=== PATIENT | female | born 1990 | race Caucasian/White ===

== ENCOUNTER 2017-09-18 14:50 | Emergency (ER) | payer OTHER ==
[~2017-09-18] VITALS: Ht 152.4 cm; Wt 76.0 kg
[~2017-09-18 14:50] MED LIST: CLOT15CR73 TOP
[2017-09-18 15:01] VITALS: BP 147/68
== END 2017-09-18 15:56 | disposition home or self-care (01) ==
LOC: ER 14:50
DX: M79.642 Pain in left hand (principal); Z88.2 Allergy status to sulfonamides; Z91.040 Latex allergy status; W23.0XXA Caught, crushed, jammed, or pinched between moving objects, initial encounter; Y93.89 Activity, other specified; Y92.89 Other specified places as the place of occurrence of the external cause; Y99.8 Other external cause status
CPT/HCPCS: 73130; 99284; A6449

== ENCOUNTER 2017-12-20 11:26 | Outpatient (CLI) | payer OTHER ==
[~2017-12-20 11:26] MED LIST changes: +FAMO-128 PO; +HYDR-569 PO
== END 2017-12-20 23:59 | disposition home or self-care (01) ==
LOC: LAB 11:26
PROVIDERS: ATTEND Obstetrics & Gynecology
DX: Z32.00 Encounter for pregnancy test, result unknown (principal); J45.909 Unspecified asthma, uncomplicated
CPT/HCPCS: 36415; 84702

== ENCOUNTER 2017-12-23 21:38 | Emergency (ER) | payer OTHER ==
[~2017-12-23] VITALS: Ht 152.4 cm; Wt 77.2 kg
[2017-12-23 22:03] VITALS: BP 137/86
[2017-12-23 23:34] LABS: URINE HCG POSITIVE (NEG)
[2017-12-23 23:50] LABS: CLARITY,URINE SLIGHTLY CLOUDY (Clear); COLOR,URINE STRAW (Yellow); GLUCOSE, URINE NEGATIVE (Neg); KETONES,URINE NEGATIVE (Neg); LEUKOCYTE ESTERASE ,URINE TRACE (Neg); NITRITES, URINE NEGATIVE (Neg); OCCULT BLOOD,URINE NEGATIVE (Neg); PH,URINE 6.5 (4.8-8.0); PROTEIN,URINE NEGATIVE (Neg); UA COLLECTION TYPE CLN CATCH MIDSTREAM; UROBILINOGEN,URINE 0.2 E.U/dL (0.2-1.0)
[2017-12-24 00:04] LABS: BACTERIA,URINE 3+ /HPF (Neg); MUCUS STRANDS NONE SEEN /LPF (Neg); RBC,URINE NONE SEEN /HPF (0-2); SQUAMOUS EPITHELIAL CELL,UR FEW /LPF (FEW); WBC,URINE 0-4 /HPF (0-4)
[2017-12-24] MEDS ORDERED: nitrofuran/nitrofuran macrocrysal 100 MG capsule PO ONE (00:10)
[2017-12-24] MEDS ORDERED: NITR100C6 PO (00:10)
== END 2017-12-24 01:03 | disposition home or self-care (01) ==
LOC: ER 21:39
DX: O23.41 Unspecified infection of urinary tract in pregnancy, first trimester (principal); R30.0 Dysuria; R39.15 Urgency of urination; R35.0 Frequency of micturition; O99.511 Diseases of the respiratory system complicating pregnancy, first trimester; J45.909 Unspecified asthma, uncomplicated; Z3A.01 Less than 8 weeks gestation of pregnancy; Z91.040 Latex allergy status; Z88.1 Allergy status to other antibiotic agents; Z88.6 Allergy status to analgesic agent
CPT/HCPCS: 81001; 81025; 87088; 99284; C1758; J7030

== ENCOUNTER 2018-08-05 11:52 | Outpatient (CLI) | payer OTHER ==
[~2018-08-05 11:52] MED LIST changes: +HYDR-4383 PO; -HYDR-569 PO; +NITR100C6 PO
[2018-08-05 12:46] LABS: HCG SERUM QL NEGATIVE
== END 2018-08-05 23:59 | disposition home or self-care (01) ==
LOC: LAB 11:52
PROVIDERS: ATTEND Student in an Organized Health Care Education/Training Program
DX: Z32.01 Encounter for pregnancy test, result positive (principal); R56.9 Unspecified convulsions; J45.909 Unspecified asthma, uncomplicated; Z91.040 Latex allergy status; Z88.6 Allergy status to analgesic agent; Z88.2 Allergy status to sulfonamides; Z79.899 Other long term (current) drug therapy
CPT/HCPCS: 36415; 84703

== ENCOUNTER 2018-08-07 10:28 | Outpatient (CLI) | payer OTHER | END 2018-08-07 23:59 | disposition home or self-care (01) | LOC: LAB 10:28 | PROVIDERS: ATTEND Student in an Organized Health Care Education/Training Program | DX: Z32.01 Encounter for pregnancy test, result positive (principal); R10.9 Unspecified abdominal pain; J45.909 Unspecified asthma, uncomplicated; Z88.6 Allergy status to analgesic agent; Z88.8 Allergy status to other drugs, medicaments and biological substances; Z91.040 Latex allergy status | CPT/HCPCS: 36415; 84702 ==

== ENCOUNTER 2018-08-09 12:54 | Outpatient (CLI) | payer OTHER | END 2018-08-09 23:59 | disposition home or self-care (01) | LOC: RAD 12:54 | PROVIDERS: ATTEND Student in an Organized Health Care Education/Training Program | DX: R10.9 Unspecified abdominal pain (principal); G40.89 Other seizures; J45.909 Unspecified asthma, uncomplicated; Z91.040 Latex allergy status; Z88.6 Allergy status to analgesic agent; Z88.2 Allergy status to sulfonamides; Z88.8 Allergy status to other drugs, medicaments and biological substances | CPT/HCPCS: 36415; 76830; 76856; 84702 ==

== ENCOUNTER 2018-08-19 10:47 | Outpatient (CLI) | payer OTHER | END 2018-08-19 23:59 | disposition home or self-care (01) | LOC: LAB 10:47 | PROVIDERS: ATTEND Specialist | DX: O20.0 Threatened abortion (principal) | CPT/HCPCS: 36415; 84702 ==

== ENCOUNTER 2018-08-21 11:14 | Outpatient (CLI) | payer OTHER ==
[2018-08-21 12:19] LABS: CLARITY,URINE CLOUDY (Clear); COLOR,URINE YELLOW (Yellow); GLUCOSE, URINE NEGATIVE (Neg); KETONES,URINE NEGATIVE (Neg); LEUKOCYTE ESTERASE ,URINE LARGE (Neg); NITRITES, URINE NEGATIVE (Neg); OCCULT BLOOD,URINE NEGATIVE (Neg); PROTEIN,URINE TRACE mg/dl (Neg); UROBILINOGEN,URINE 0.2 E.U/dL (0.2-1.0)
[2018-08-21 12:19] LABS: BASOPHILS # (AUTO) 0.1 X10'3 (0-0.2); BASOPHILS % (AUTO) 0.8 % (0-1); EOSINOPHILS # (AUTO) 0.2 X10'3 (0-0.9); EOSINOPHILS % (AUTO) 1.6 % (0-6); HEMATOCRIT 37.2 % (35.0-45.0); HEMOGLOBIN 12.7 g/dl (12.0-16.0); LYMPHOCYTES # (AUTO) 2.6 X10'3 (1.1-4.8); LYMPHOCYTES % (AUTO) 26.9 % (21-51); MEAN CORPUSCULAR HEMOGLOBIN 31.4 PG (27.0-31.0); MEAN CORPUSCULAR HGB CONC 34.2 g/dL (33.0-36.5); MEAN CORPUSCULAR VOLUME 91.9 FL (78-98); MEAN PLATELET VOLUME 8.2 FL (7.4-10.4); MONOCYTES # (AUTO) 0.6 X10'3 (0-0.9); MONOCYTES % (AUTO) 5.8 % (2-12); NEUTROPHILS # (AUTO) 6.2 X10'3 (1.8-7.7); NEUTROPHILS % (AUTO) 64.9 % (42-75); PLATELET COUNT 284 X10'3 (140-440); RED BLOOD COUNT 4.05 X10'6 (4.20-5.60); RED CELL DISTRIBUTION WIDTH 13.9 % (11.5-14.5); WHITE BLOOD COUNT 9.6 X10'3 (4.5-11.0)
[2018-08-21 12:26] LABS: UA COLLECTION TYPE NON-SPECIFIED
[2018-08-21 12:28] LABS: BACTERIA,URINE 3+ /HPF (Neg); SQUAMOUS EPITHELIAL CELL,UR MANY /LPF (FEW); WBC,URINE 30-50 /HPF (0-4)
[2018-08-21 12:34] LABS: RBC,URINE 0-2 /HPF (0-2)
[2018-08-21 16:14] LABS: HIV ANTIBODY 1&2 RAPID NON-REACTIVE (Neg)
[2018-08-21 16:42] LABS: CLARITY,URINE CLEAR (Clear); COLOR,URINE STRAW (Yellow); GLUCOSE, URINE NEGATIVE (Neg); KETONES,URINE NEGATIVE (Neg); LEUKOCYTE ESTERASE ,URINE TRACE (Neg); NITRITES, URINE NEGATIVE (Neg); OCCULT BLOOD,URINE NEGATIVE (Neg); PROTEIN,URINE NEGATIVE (Neg); UROBILINOGEN,URINE 0.2 E.U/dL (0.2-1.0)
[2018-08-21 16:51] LABS: UA COLLECTION TYPE CLN CATCH MIDSTREAM
[2018-08-21 16:53] LABS: BACTERIA,URINE 2+ /HPF (Neg); RBC,URINE 0-2 /HPF (0-2); SQUAMOUS EPITHELIAL CELL,UR FEW /LPF (FEW); WBC,URINE 0-4 /HPF (0-4)
[2018-08-22 07:12] LABS: RPR Non Reactive (Non Reactive)
[2018-08-22 11:13] LABS: RUBELLA ANTIBODIES, IGG 3.11 index (Immune >0.99)
[2018-08-22 13:12] LABS: HBSAG SCREEN Negative (Negative); HEPATITIS C ANTIBODY <0.1 s/co ratio (0.0-0.9)
== END 2018-08-21 23:59 | disposition home or self-care (01) ==
LOC: LAB 11:14
PROVIDERS: ATTEND Specialist
DX: O26.841 Uterine size-date discrepancy, first trimester (principal); Z34.91 Encounter for supervision of normal pregnancy, unspecified, first trimester
CPT/HCPCS: 36415; 81001; 84702; 85025; 86592; 86703; 86762; 86803; 86885; 86900; 86901; 87088; 87340; 87491

== ENCOUNTER 2018-08-23 13:29 | Outpatient (CLI) | payer OTHER | END 2018-08-23 23:59 | disposition home or self-care (01) | LOC: LAB 13:29 | PROVIDERS: ATTEND Specialist | DX: Z34.91 Encounter for supervision of normal pregnancy, unspecified, first trimester (principal) | CPT/HCPCS: 36415; 84702 ==

== ENCOUNTER 2018-08-25 16:23 | Emergency (ER) | payer OTHER ==
[~2018-08-25] VITALS: Ht 152.4 cm; Wt 171.0 kg
[2018-08-25 16:59] LABS: CLARITY,URINE CLEAR (Clear); COLOR,URINE YELLOW (Yellow); GLUCOSE, URINE NEGATIVE (Neg); KETONES,URINE 15 mg/dl (Neg); LEUKOCYTE ESTERASE ,URINE SMALL (Neg); NITRITES, URINE NEGATIVE (Neg); OCCULT BLOOD,URINE LARGE (Neg); PH,URINE 5.5 (4.8-8.0); PROTEIN,URINE NEGATIVE (Neg); UROBILINOGEN,URINE 0.2 E.U/dL (0.2-1.0)
[2018-08-25 17:08] LABS: UA COLLECTION TYPE CLN CATCH MIDSTREAM
[2018-08-25 17:10] LABS: BACTERIA,URINE 3+ /HPF (Neg); MUCUS STRANDS FEW /LPF (Neg); RBC,URINE 0-2 /HPF (0-2); SQUAMOUS EPITHELIAL CELL,UR MANY /LPF (FEW); WBC,URINE 0-4 /HPF (0-4)
[2018-08-25 17:11] LABS: RENAL CELLS, URINE FEW /HPF
[2018-08-25 18:01] VITALS: BP 114/72
== END 2018-08-25 18:02 | disposition home or self-care (01) ==
LOC: EEVIPCON 16:23 → ER 16:23
DX: O46.91 Antepartum hemorrhage, unspecified, first trimester (principal); J45.909 Unspecified asthma, uncomplicated; Z3A.01 Less than 8 weeks gestation of pregnancy; Z88.2 Allergy status to sulfonamides; Z88.6 Allergy status to analgesic agent; Z79.899 Other long term (current) drug therapy; Z91.040 Latex allergy status; Z98.818 Other dental procedure status
CPT/HCPCS: 36415; 81001; 84702; 99283

== ENCOUNTER 2018-08-27 14:46 | Outpatient (CLI) | payer OTHER | END 2018-08-27 23:59 | disposition home or self-care (01) | LOC: LAB 14:46 | PROVIDERS: ATTEND Specialist | DX: O26.841 Uterine size-date discrepancy, first trimester (principal); Z34.91 Encounter for supervision of normal pregnancy, unspecified, first trimester | CPT/HCPCS: 36415; 84702 ==

== ENCOUNTER 2018-08-28 16:35 | Emergency (ER) | payer OTHER ==
[~2018-08-28] VITALS: Ht 152.4 cm; Wt 80.0 kg
[2018-08-28 17:29] LABS: CLARITY,URINE CLEAR (Clear); COLOR,URINE STRAW (Yellow); GLUCOSE, URINE NEGATIVE (Neg); KETONES,URINE NEGATIVE (Neg); LEUKOCYTE ESTERASE ,URINE NEGATIVE (Neg); NITRITES, URINE NEGATIVE (Neg); OCCULT BLOOD,URINE TRACE-INTACT (Neg); PH,URINE 5.5 (4.8-8.0); PROTEIN,URINE NEGATIVE (Neg); UROBILINOGEN,URINE 0.2 E.U/dL (0.2-1.0)
[2018-08-28 17:30] LABS: UA COLLECTION TYPE CLN CATCH MIDSTREAM
[2018-08-28 17:43] LABS: SQUAMOUS EPITHELIAL CELL,UR FEW /LPF (FEW)
[2018-08-28 17:44] LABS: BACTERIA,URINE FEW /HPF (Neg); RBC,URINE NONE SEEN /HPF (0-2); WBC,URINE 0-4 /HPF (0-4)
[2018-08-28 17:57] LABS: URINE HCG POSITIVE (NEG)
[2018-08-28 18:35] VITALS: BP 136/79
== END 2018-08-28 19:05 | disposition home or self-care (01) ==
LOC: EEVIPCON 16:36 → ER 16:36
DX: O46.91 Antepartum hemorrhage, unspecified, first trimester (principal); J45.909 Unspecified asthma, uncomplicated; Z3A.01 Less than 8 weeks gestation of pregnancy; Z88.2 Allergy status to sulfonamides; Z88.6 Allergy status to analgesic agent; Z79.899 Other long term (current) drug therapy; Z91.040 Latex allergy status; Z98.818 Other dental procedure status
CPT/HCPCS: 36415; 81001; 81025; 82948; 84702; 99283

== ENCOUNTER 2021-08-26 07:42 | Outpatient (CLI) | payer BC ==
[2021-08-26 08:22] LABS: BASOPHILS % (AUTO) 0.4 % (0-1); EOSINOPHILS # (AUTO) 0.1 X10'3 (0-0.9); EOSINOPHILS % (AUTO) 1.5 % (0-6); HEMATOCRIT 38.2 % (35.0-45.0); HEMOGLOBIN 13.3 g/dl (12.0-16.0); LYMPHOCYTES # (AUTO) 3.7 X10'3 (1.1-4.8); LYMPHOCYTES % (AUTO) 44.5 % (21-51); MEAN CORPUSCULAR HEMOGLOBIN 31.7 PG (27.0-31.0); MEAN CORPUSCULAR HGB CONC 34.9 g/dL (33.0-36.5); MEAN CORPUSCULAR VOLUME 90.8 FL (78-98); MEAN PLATELET VOLUME 7.6 FL (7.4-10.4); MONOCYTES # (AUTO) 0.5 X10'3 (0-0.9); NEUTROPHILS # (AUTO) 3.9 X10'3 (1.8-7.7); NEUTROPHILS % (AUTO) 47.6 % (42-75); PLATELET COUNT 315 X10'3 (140-440); RED BLOOD COUNT 4.21 X10'6 (4.20-5.60); WHITE BLOOD COUNT 8.2 X10'3 (4.5-11.0)
[2021-08-26 08:32] LABS: ALANINE AMINOTRANSFERASE 32 U/L (12-78); ALBUMIN 3.8 G/DL (3.4-5.0); ALKALINE PHOSPHATASE 86 IU/L (46-116); ANION GAP 9 (8-16); ASPARTATE AMINO TRANSFERASE 19 U/L (10-37); BILIRUBIN,TOTAL 0.5 MG/DL (0.1-1.0); BLOOD UREA NITROGEN 8 MG/DL (7-18); BUN/CREATININE RATIO 9.8 (6.6-38.0); CALCIUM 8.6 MG/DL (8.5-10.1); CHLORIDE 106 MMOL/L (99-107); CHOL/HDL RATIO 4.7 (0.00-4.99); CHOLESTEROL 170 MG/DL (0-200); CREATININE 0.82 MG/DL (0.40-0.90); GLUCOSE 98 MG/DL (70-104); HDL CHOLESTEROL 36 MG/DL (35-60); LDL CHOLESTEROL 108 MG/DL (50-100); POTASSIUM 3.5 MMOL/L (3.5-5.1); SODIUM 142 MMOL/L (135-145); TOTAL PROTEIN 7.6 G/DL (6.4-8.2); TRIGLYCERIDES 192 MG/DL (20-135); eGFR 82 ML/MIN
[2021-08-26 08:39] LABS: HEMOGLOBIN A1C 5.4 % (4.5-6.2)
[2021-08-26 09:46] LABS: HIV ANTIBODY 1&2 RAPID NON-REACTIVE (Neg)
== END 2021-08-26 23:59 | disposition home or self-care (01) ==
LOC: LAB 07:42
PROVIDERS: ATTEND Student in an Organized Health Care Education/Training Program
DX: Z00.00 Encounter for general adult medical examination without abnormal findings (principal); G43.909 Migraine, unspecified, not intractable, without status migrainosus; N92.6 Irregular menstruation, unspecified
CPT/HCPCS: 36415; 80053; 80061; 83036; 85025; 86592; 86703

== ENCOUNTER 2021-10-28 08:35 | Outpatient (CLI) | payer BC ==
[2021-10-28 09:20] LABS: BASOPHILS % (AUTO) 0.6 % (0-1); EOSINOPHILS # (AUTO) 0.1 X10'3 (0-0.9); EOSINOPHILS % (AUTO) 1.5 % (0-6); HEMATOCRIT 40.3 % (35.0-45.0); HEMOGLOBIN 13.8 g/dl (12.0-16.0); LYMPHOCYTES # (AUTO) 2.6 X10'3 (1.1-4.8); LYMPHOCYTES % (AUTO) 41.1 % (21-51); MEAN CORPUSCULAR HEMOGLOBIN 31.5 PG (27.0-31.0); MEAN CORPUSCULAR HGB CONC 34.3 g/dL (33.0-36.5); MEAN CORPUSCULAR VOLUME 91.8 FL (78-98); MEAN PLATELET VOLUME 7.8 FL (7.4-10.4); MONOCYTES # (AUTO) 0.5 X10'3 (0-0.9); MONOCYTES % (AUTO) 7.9 % (2-12); NEUTROPHILS # (AUTO) 3.1 X10'3 (1.8-7.7); NEUTROPHILS % (AUTO) 48.9 % (42-75); PLATELET COUNT 323 X10'3 (140-440); RED BLOOD COUNT 4.39 X10'6 (4.20-5.60); RED CELL DISTRIBUTION WIDTH 13.1 % (11.5-14.5); WHITE BLOOD COUNT 6.3 X10'3 (4.5-11.0)
[2021-10-28 09:44] LABS: ANION GAP 8 (8-16); BLOOD UREA NITROGEN 8 MG/DL (7-18); BUN/CREATININE RATIO 9.9 (6.6-38.0); CALCIUM 8.8 MG/DL (8.5-10.1); CHLORIDE 104 MMOL/L (99-107); CREATININE 0.81 MG/DL (0.40-0.90); GLUCOSE 109 MG/DL (70-104); POTASSIUM 3.7 MMOL/L (3.5-5.1); SODIUM 140 MMOL/L (135-145); TOTAL CARBON DIOXIDE 27.6 MMOL/L (24-32); eGFR 82 ML/MIN
[2021-10-28 09:45] LABS: ALANINE AMINOTRANSFERASE 43 U/L (12-78); ALBUMIN/GLOBULIN RATIO 1.1 (1.1-1.5); ALKALINE PHOSPHATASE 93 IU/L (46-116); ASPARTATE AMINO TRANSFERASE 24 U/L (10-37); BILIRUBIN,TOTAL 0.6 MG/DL (0.1-1.0); CHOL/HDL RATIO 4.5 (0.00-4.99); CHOLESTEROL 189 MG/DL (0-200); HDL CHOLESTEROL 42 MG/DL (35-60); LDL CHOLESTEROL 126 MG/DL (50-100); TOTAL PROTEIN 7.8 G/DL (6.4-8.2); TRIGLYCERIDES 106 MG/DL (20-135)
== END 2021-10-28 23:59 | disposition home or self-care (01) ==
LOC: LAB 08:35
PROVIDERS: ATTEND Psychiatry & Neurology Psychiatry
DX: E55.9 Vitamin D deficiency, unspecified (principal); E78.5 Hyperlipidemia, unspecified; R53.83 Other fatigue
CPT/HCPCS: 36415; 80053; 80061; 82306; 82607; 82746; 84439; 84443; 85025

== ENCOUNTER 2022-02-24 09:11 | Outpatient (CLI) | payer BC ==
[2022-02-24 09:56] LABS: BASOPHILS % (AUTO) 0.6 % (0-1); EOSINOPHILS # (AUTO) 0.1 X10'3 (0-0.9); EOSINOPHILS % (AUTO) 1.2 % (0-6); HEMATOCRIT 36.7 % (35.0-45.0); HEMOGLOBIN 13.1 g/dl (12.0-16.0); LYMPHOCYTES # (AUTO) 2.9 X10'3 (1.1-4.8); LYMPHOCYTES % (AUTO) 39.1 % (21-51); MEAN CORPUSCULAR HEMOGLOBIN 32.2 PG (27.0-31.0); MEAN CORPUSCULAR HGB CONC 35.7 g/dL (33.0-36.5); MEAN CORPUSCULAR VOLUME 90.1 FL (78-98); MEAN PLATELET VOLUME 7.9 FL (7.4-10.4); MONOCYTES # (AUTO) 0.5 X10'3 (0-0.9); MONOCYTES % (AUTO) 6.4 % (2-12); NEUTROPHILS # (AUTO) 3.9 X10'3 (1.8-7.7); NEUTROPHILS % (AUTO) 52.7 % (42-75); PLATELET COUNT 305 X10'3 (140-440); RED BLOOD COUNT 4.08 X10'6 (4.20-5.60); RED CELL DISTRIBUTION WIDTH 12.7 % (11.5-14.5); WHITE BLOOD COUNT 7.5 X10'3 (4.5-11.0)
[2022-02-24 10:07] LABS: ALANINE AMINOTRANSFERASE 24 U/L (12-78); ALBUMIN 3.9 G/DL (3.4-5.0); ALKALINE PHOSPHATASE 91 IU/L (46-116); ANION GAP 7 (8-16); ASPARTATE AMINO TRANSFERASE 17 U/L (10-37); BILIRUBIN,TOTAL 0.3 MG/DL (0.1-1.0); BLOOD UREA NITROGEN 11 MG/DL (7-18); BUN/CREATININE RATIO 14.1 (6.6-38.0); CALCIUM 9.4 MG/DL (8.5-10.1); CHLORIDE 105 MMOL/L (99-107); CHOL/HDL RATIO 4.2 (0.00-4.99); CHOLESTEROL 178 MG/DL (0-200); CREATININE 0.78 MG/DL (0.40-0.90); GLUCOSE 101 MG/DL (70-104); HDL CHOLESTEROL 42 MG/DL (35-60); LDL CHOLESTEROL 113 MG/DL (50-100); POTASSIUM 3.5 MMOL/L (3.5-5.1); SODIUM 140 MMOL/L (135-145); TOTAL CARBON DIOXIDE 28.3 MMOL/L (24-32); TOTAL PROTEIN 7.7 G/DL (6.4-8.2); TRIGLYCERIDES 112 MG/DL (20-135); eGFR 86 ML/MIN
[2022-02-24 10:28] LABS: HEMOGLOBIN A1C 5.3 % (4.5-6.2)
[2022-02-24 11:44] LABS: HIV ANTIBODY 1&2 RAPID NON-REACTIVE (Neg)
== END 2022-02-24 23:59 | disposition home or self-care (01) ==
LOC: LAB 09:11
PROVIDERS: ATTEND Student in an Organized Health Care Education/Training Program
DX: E28.2 Polycystic ovarian syndrome (principal); E66.3 Overweight; R94.5 Abnormal results of liver function studies
CPT/HCPCS: 36415; 80053; 80061; 83036; 85025; 86592; 86703

== ENCOUNTER 2022-04-11 12:38 | Outpatient (CLI) | payer BC | END 2022-04-11 23:59 | disposition home or self-care (01) | LOC: RAD 12:38 | PROVIDERS: ATTEND Student in an Organized Health Care Education/Training Program | DX: R10.9 Unspecified abdominal pain (principal) | CPT/HCPCS: 76700 ==

== ENCOUNTER 2022-05-13 22:27 | Emergency (ER) | payer BC, MEDICAID ==
[~2022-05-13] VITALS: Ht 152.4 cm; Wt 77.2 kg
[2022-05-13 22:31] VITALS: BP 136/76
[2022-05-13] MEDS ORDERED: AMOX500C2 PO (23:06)
== END 2022-05-13 23:16 | disposition home or self-care (01) ==
LOC: ER 22:27
DX: S00.412A Abrasion of left ear, initial encounter (principal); H66.92 Otitis media, unspecified, left ear; J45.909 Unspecified asthma, uncomplicated; Z91.041 Radiographic dye allergy status; Z88.2 Allergy status to sulfonamides; Z88.6 Allergy status to analgesic agent; X58.XXXA Exposure to other specified factors, initial encounter; Y93.89 Activity, other specified; Y92.89 Other specified places as the place of occurrence of the external cause; Y99.8 Other external cause status
CPT/HCPCS: 99283

== ENCOUNTER 2022-06-13 08:17 | Day surgery (SDC) | payer BC, MEDICAID ==
[2022-06-08 15:19] LABS: BASOPHILS % (AUTO) 0.5 % (0-1); EOSINOPHILS # (AUTO) 0.1 X10'3 (0-0.9); EOSINOPHILS % (AUTO) 1.9 % (0-6); LYMPHOCYTES % (AUTO) 39.3 % (21-51); MEAN CORPUSCULAR HEMOGLOBIN 31.4 PG (27.0-31.0); MEAN CORPUSCULAR VOLUME 92.4 FL (78-98); MEAN PLATELET VOLUME 7.9 FL (7.4-10.4); MONOCYTES # (AUTO) 0.5 X10'3 (0-0.9); MONOCYTES % (AUTO) 6.9 % (2-12); NEUTROPHILS % (AUTO) 51.4 % (42-75); PRE OP HEMATOCRIT 40.2 % (35.0-45.0); PRE OP HEMOGLOBIN 13.7 g/dL (12.0-16.0); PRE OP PLATELET COUNT 314 X10'3 (140-440); RED BLOOD COUNT 4.35 X10'6 (4.20-5.60); RED CELL DISTRIBUTION WIDTH 13.7 % (11.5-14.5)
[2022-06-08 15:33] LABS: ALBUMIN 4.1 G/DL (3.4-5.0); ALBUMIN/GLOBULIN RATIO 1.1 (1.1-1.5); ALKALINE PHOSPHATASE 103 IU/L (46-116); BLOOD UREA NITROGEN 8 MG/DL (7-18); BUN/CREATININE RATIO 10.4 (6.6-38.0); CALCIUM 9.4 MG/DL (8.5-10.1); CHLORIDE 103 MMOL/L (99-107); CREATININE 0.77 MG/DL (0.40-0.90); PRE OP ALT 49 U/L (30-65); PRE OP ANION GAP 9 (8-16); PRE OP AST 34 U/L (10-37); PRE OP BILIRUB, TOTAL 0.5 MG/DL (0.0-1.0); PRE OP POTASSIUM 3.5 MMOL/L (3.4-5.1); PRE OP SODIUM 141 MMOL/L (135-145); TOTAL CARBON DIOXIDE 28.8 MMOL/L (24-32); TOTAL PROTEIN 7.9 G/DL (6.4-8.2); eGFR 87 ML/MIN
[2022-06-08 15:42] LABS: PRE OP GLUCOSE 99 MG/DL (70-104)
[2022-06-08 15:54] LABS: HCG SERUM QL NEGATIVE
[~2022-06-13] VITALS: Ht 152.4 cm; Wt 83.0 kg
[2022-06-13] VITALS (10 sets, daily range): BP systolic 98–163; BP diastolic 52–111
[~2022-06-13 08:17] MED LIST changes: -CLOT15CR73 TOP; +DOCUMENT DATE & TIME OF BETA-BLOCKER PO ONE; -FAMO-128 PO; -HYDR-4383 PO; +INDOCYANINE GREEN 25 MG/10 ML VIAL IV ONE; +METF-1203 PO; -NITR100C6 PO; +PARO40TA4 PO; +PROP20TA6 PO; +ceFAZolin inj. 2,000 MG in dextrose 5%-water 100 ML IV ONE; +famotidine 20mg tablet PO ONE; +ringers solution, lacted 1,000 ML IV SCH
[2022-06-13] MEDS ORDERED: BUPIVAcaine 0.5% inj/PF 30 ML ONE (12:33)
[2022-06-13] MEDS ORDERED: LIDOcaine 1% 30ml preserv. free vial ONE (12:33)
[2022-06-13] MEDS ORDERED: MIDAZolam 5mg/ml 2ml vial IV ONE (12:50)
[2022-06-13] MEDS ORDERED: sevoflurane 250ml liquid IH ONE (12:55)
[2022-06-13] MEDS ORDERED: dexamethasone 4mg/ml inj ONE (12:55)
[2022-06-13] MEDS ORDERED: fentaNYL/PF 50MCG/1 ML 2ML syringe ONE (13:12)
[2022-06-13] MEDS ORDERED: neostigmine methylsulfate 1 MG/ML 10ml vial ONE (13:13)
[2022-06-13] MEDS ORDERED: LIDOcaine 1%/PF 5ML 10 MG/ML VIAL ONE (13:13)
[2022-06-13] MEDS ORDERED: ondansetron/PF 4mg/2ml inj ONE (13:13)
[2022-06-13] MEDS ORDERED: rocuronium 10mg/ml inj IV ONE ×2 (13:13)
[2022-06-13] MEDS ORDERED: glycopyrrolate 0.2mg/ml inj ONE (13:13)
[2022-06-13] MEDS ORDERED: BUPIVAcaine 0.5% inj/PF 30 ml vial IJ ONE (13:20)
[2022-06-13] MEDS ORDERED: hydrALAZINE 20mg/ml inj. IV PRN (13:35)
[2022-06-13] MEDS ORDERED: ringers solution, lacted 1,000 ML IV SCH (13:35)
[2022-06-13] MEDS ORDERED: ondansetron/PF 4mg/2ml inj IV PRN (13:35)
[2022-06-13] MEDS ORDERED: morphine 2 MG/ML inj. syringe IV PRN (13:35)
[2022-06-13] MEDS ORDERED: labetalol 20mg/4ml (5mg/ml) syringe IV PRN (13:35)
[2022-06-13] MEDS ORDERED: fentaNYL/PF 50MCG/1 ML 2ML syringe IV PRN ×2 (13:35)
[2022-06-13] MEDS ORDERED: morphine 4 MG/ML inj SYRINge IV PRN (13:35)
[2022-06-13] MEDS ORDERED: oxyCODONE/APAP 5-325mg tablet PO PRN (14:05)
--- NOTE | 2022-06-13 14:10 | NUR ---
Received from OR via , accompanied by Anesthesiologist NEIL AND OR NURSE and report given by Anesthesiolgist. PT IS DROWSY YET REPSONDS TO VERBAL STIMULI. ON MASK AT 6 LPM. 20G TO LT HAND. VSS. 4 LAP SITES WITH BANDAIDS; CDI Addendum: 06/13/22 at 1447 by Faiza Gooden RN Amended: Links added.
[2022-06-13] MEDS ORDERED: ipratropium/albuterol 3ml nebule NEB PRN (14:35)
--- NOTE | 2022-06-13 15:40 | NUR ---
I HAVE REVIEWED D/C INSTRUCTIONS WITH PATIENT AND THEY HAVE VERBALIZED UNDERSTANDING OF INSTRUCTIONS. PATIENT D/C HOME WITH ALL BELONGINGS AND FAMILY GAVE TRANSPORT Addendum: 06/13/22 at 1657 by Faiza Gooden RN Amended: Links added.
== END 2022-06-13 15:40 | disposition home or self-care (01) ==
LOC: PAS 08:17
PROVIDERS: ATTEND Surgery
DX: K80.10 Calculus of gallbladder with chronic cholecystitis without obstruction (principal); J45.909 Unspecified asthma, uncomplicated; F41.9 Anxiety disorder, unspecified; E28.2 Polycystic ovarian syndrome; E11.9 Type 2 diabetes mellitus without complications; E66.9 Obesity, unspecified; Z68.35 Body mass index [BMI] 35.0-35.9, adult; I10 Essential (primary) hypertension; G47.33 Obstructive sleep apnea (adult) (pediatric); F32.A Depression, unspecified; G43.909 Migraine, unspecified, not intractable, without status migrainosus; Z91.040 Latex allergy status; Z88.2 Allergy status to sulfonamides; Z88.8 Allergy status to other drugs, medicaments and biological substances; Z79.84 Long term (current) use of oral hypoglycemic drugs; Z79.899 Other long term (current) drug therapy; Z82.49 Family history of ischemic heart disease and other diseases of the circulatory system; Z83.3 Family history of diabetes mellitus; Z80.3 Family history of malignant neoplasm of breast; Z80.41 Family history of malignant neoplasm of ovary
CPT/HCPCS: 36415; 47563; 80053; 82948; 84703; 85025; 94640; 94760; J0690; J2250; J2405; J2710; J3010; J3490; J7030; J7060; J7120; S0020; S2900; Z7506; Z7508; Z7512; A4215; A4618; A7000; J1100

== ENCOUNTER 2022-06-23 21:28 | Inpatient (IN) | payer BC, MEDICAID ==
[~2022-06-23] VITALS: Ht 152.4 cm; Wt 83.6 kg
[~2022-06-23 21:28] MED LIST changes: -DOCUMENT DATE & TIME OF BETA-BLOCKER PO ONE; -INDOCYANINE GREEN 25 MG/10 ML VIAL IV ONE; -ceFAZolin inj. 2,000 MG in dextrose 5%-water 100 ML IV ONE; -famotidine 20mg tablet PO ONE; -ringers solution, lacted 1,000 ML IV SCH
[2022-06-24] MEDS ORDERED: morphine 4 MG/ML inj SYRINge IV ONE ×2 (00:05→01:30)
[2022-06-24] MEDS ORDERED: normal saline 1000ML IV soln IVB ONE (00:05)
[2022-06-24 00:55] LABS: BASOPHILS % (AUTO) 0.4 % (0-1); EOSINOPHILS # (AUTO) 0.3 X10'3 (0-0.9); EOSINOPHILS % (AUTO) 2.7 % (0-6); HEMATOCRIT 38.4 % (35.0-45.0); HEMOGLOBIN 13.1 g/dl (12.0-16.0); LYMPHOCYTES # (AUTO) 4.3 X10'3 (1.1-4.8); LYMPHOCYTES % (AUTO) 36.6 % (21-51); MEAN CORPUSCULAR HEMOGLOBIN 31.4 PG (27.0-31.0); MEAN CORPUSCULAR HGB CONC 34.1 g/dL (33.0-36.5); MEAN CORPUSCULAR VOLUME 92.3 FL (78-98); MEAN PLATELET VOLUME 7.9 FL (7.4-10.4); MONOCYTES # (AUTO) 0.7 X10'3 (0-0.9); MONOCYTES % (AUTO) 6.3 % (2-12); NEUTROPHILS # (AUTO) 6.3 X10'3 (1.8-7.7); PLATELET COUNT 322 X10'3 (140-440); RED BLOOD COUNT 4.16 X10'6 (4.20-5.60); RED CELL DISTRIBUTION WIDTH 12.9 % (11.5-14.5); WHITE BLOOD COUNT 11.7 X10'3 (4.5-11.0)
[2022-06-24 01:08] LABS: ALANINE AMINOTRANSFERASE 84 U/L (12-78); ALBUMIN 3.8 G/DL (3.4-5.0); ALKALINE PHOSPHATASE 117 IU/L (46-116); ANION GAP 9 (8-16); ASPARTATE AMINO TRANSFERASE 50 U/L (10-37); BILIRUBIN,TOTAL 0.4 MG/DL (0.1-1.0); BLOOD UREA NITROGEN 6 MG/DL (7-18); BUN/CREATININE RATIO 8.3 (6.6-38.0); CHLORIDE 103 MMOL/L (99-107); CREATININE 0.72 MG/DL (0.40-0.90); GLUCOSE 107 MG/DL (70-104); LIPASE 54 U/L (73-393); POTASSIUM 3.3 MMOL/L (3.5-5.1); SODIUM 140 MMOL/L (135-145); TOTAL CARBON DIOXIDE 27.6 MMOL/L (24-32); TOTAL PROTEIN 7.7 G/DL (6.4-8.2); eGFR > 90 ML/MIN
[2022-06-24] MEDS ORDERED: iohexol 300mg/ml 100ml inj. ONE (01:41)
[2022-06-24] MEDS ORDERED: HYDROmorphone 1 mg/ml syringe IV ONE (04:00)
[2022-06-24] MEDS ORDERED: piperacillin/tazo 3.375gm/50ml 50 ML IV ONE (04:00)
--- NOTE | 2022-06-24 05:35 | NUR ---
Pt resting in bed. Parents at bedside. Zosyn complete. VSS. Pain at a tolerable level
[2022-06-24] MEDS ORDERED: potassium Cl 20 mEq SR tablet PO PRN ×2 (06:25)
[2022-06-24] MEDS ORDERED: acetaminophen 325mg tablet PO PRN (06:25)
[2022-06-24] MEDS ORDERED: morphine 2 MG/ML inj. syringe IV PRN (06:25)
[2022-06-24] MEDS ORDERED: potassium Cl 40MEQ/1/2NS 520ml 520 ML IV PRN (06:25)
[2022-06-24] MEDS ORDERED: magnesium Cl slow-release 64mg tablet PO PRN (06:25)
[2022-06-24] MEDS ORDERED: ondansetron/PF 4mg/2ml inj IV PRN (06:25)
[2022-06-24] MEDS ORDERED: magnesium 4gm in 100ml NS 100 ML IV PRN (06:25)
[2022-06-24] MEDS: normal saline 1000ml 1,000 ML IV SCH ×3 (06:49→19:08)
[2022-06-24] MEDS ORDERED: potassium Cl 40MEQ/1/2NS 520ml 520 ML IV ONE (08:15)
[2022-06-24] MEDS: K and/or MAG REPLACEMENT MC SCH ×2 (08:18→19:25)
[2022-06-24 10:00] VITALS: BP 112/78
[2022-06-24 13:03] LABS: BASOPHILS % (AUTO) 0.5 % (0-1); EOSINOPHILS # (AUTO) 0.1 X10'3 (0-0.9); EOSINOPHILS % (AUTO) 2.3 % (0-6); HEMOGLOBIN 12.8 g/dl (12.0-16.0); LYMPHOCYTES # (AUTO) 1.7 X10'3 (1.1-4.8); MEAN CORPUSCULAR HEMOGLOBIN 31.5 PG (27.0-31.0); MEAN CORPUSCULAR HGB CONC 33.7 g/dL (33.0-36.5); MEAN CORPUSCULAR VOLUME 93.3 FL (78-98); MEAN PLATELET VOLUME 8.1 FL (7.4-10.4); MONOCYTES # (AUTO) 0.4 X10'3 (0-0.9); MONOCYTES % (AUTO) 6.8 % (2-12); NEUTROPHILS % (AUTO) 63.4 % (42-75); PLATELET COUNT 296 X10'3 (140-440); RED BLOOD COUNT 4.07 X10'6 (4.20-5.60); WHITE BLOOD COUNT 6.3 X10'3 (4.5-11.0)
[2022-06-24 13:07] LABS: ALBUMIN 3.5 G/DL (3.4-5.0); ANION GAP 6 (8-16); BLOOD UREA NITROGEN 5 MG/DL (7-18); BUN/CREATININE RATIO 8.2 (6.6-38.0); CALCIUM 8.3 MG/DL (8.5-10.1); CHLORIDE 104 MMOL/L (99-107); CREATININE 0.61 MG/DL (0.40-0.90); GLUCOSE 99 MG/DL (70-104); POTASSIUM 3.9 MMOL/L (3.5-5.1); SODIUM 137 MMOL/L (135-145); TOTAL CARBON DIOXIDE 27.2 MMOL/L (24-32); eGFR > 90 ML/MIN
--- NOTE | 2022-06-24 14:02 | NUR ---
Spoke to Dr Davis regarding patient. Per Dr Davis he is ok for patient to have a regular diet, no antibiotics needed, he is ok for discharge from his standpoint. Dr Blanco aware of the above.
--- NOTE | 2022-06-24 17:22 | NUR ---
Message: Karli Surg [id number] Re: 343B chambers only has Morphine for pain can we get [place] please? Transaction number: [id number]
--- NOTE | 2022-06-24 17:46 | NUR ---
Message: Karli Surg [id number] Re: PO pain medication for [facility]B [facility] , please call Transaction number: [id number]
--- NOTE | 2022-06-24 18:06 | NUR ---
Problems reprioritized. Patient report given, questions answered & plan of care reviewed with Alison DOVER.
[2022-06-24 19:00] VITALS: BP 116/80
[2022-06-24] MEDS: HYDROcodone/acetaminophen 5mg/325mg tablet PO PRN (19:07)
[2022-06-24 22:00] VITALS: BP 117/79
[2022-06-25] MEDS: HYDROcodone/acetaminophen 5mg/325mg tablet PO PRN ×4 (01:43→23:21)
[2022-06-25 06:00] VITALS: BP 115/78
[2022-06-25 06:36] LABS: BASOPHILS % (AUTO) 0.6 % (0-1); EOSINOPHILS # (AUTO) 0.2 X10'3 (0-0.9); EOSINOPHILS % (AUTO) 3.3 % (0-6); HEMATOCRIT 37.8 % (35.0-45.0); HEMOGLOBIN 12.7 g/dl (12.0-16.0); LYMPHOCYTES # (AUTO) 2.2 X10'3 (1.1-4.8); MEAN CORPUSCULAR HEMOGLOBIN 31.4 PG (27.0-31.0); MEAN CORPUSCULAR HGB CONC 33.6 g/dL (33.0-36.5); MEAN CORPUSCULAR VOLUME 93.4 FL (78-98); MONOCYTES # (AUTO) 0.4 X10'3 (0-0.9); MONOCYTES % (AUTO) 6.3 % (2-12); NEUTROPHILS # (AUTO) 2.8 X10'3 (1.8-7.7); NEUTROPHILS % (AUTO) 49.8 % (42-75); PLATELET COUNT 294 X10'3 (140-440); RED BLOOD COUNT 4.05 X10'6 (4.20-5.60); RED CELL DISTRIBUTION WIDTH 13.5 % (11.5-14.5); WHITE BLOOD COUNT 5.6 X10'3 (4.5-11.0)
[2022-06-25 06:51] LABS: ALBUMIN 3.3 G/DL (3.4-5.0); ANION GAP 5 (8-16); BLOOD UREA NITROGEN 3 MG/DL (7-18); BUN/CREATININE RATIO 4.9 (6.6-38.0); CALCIUM 8.7 MG/DL (8.5-10.1); CHLORIDE 108 MMOL/L (99-107); CREATININE 0.61 MG/DL (0.40-0.90); GLUCOSE 110 MG/DL (70-104); MAGNESIUM 2.2 MG/DL (1.5-2.4); PHOSPHORUS 2.9 MG/DL (2.3-4.5); POTASSIUM 4.1 MMOL/L (3.5-5.1); SODIUM 140 MMOL/L (135-145); TOTAL CARBON DIOXIDE 26.8 MMOL/L (24-32); eGFR > 90 ML/MIN
[2022-06-25] MEDS: K and/or MAG REPLACEMENT MC SCH ×2 (07:37→20:00)
[2022-06-25 11:00] VITALS: BP 126/77
[2022-06-25 11:03] LABS: ALANINE AMINOTRANSFERASE 657 U/L (12-78); ALBUMIN/GLOBULIN RATIO 0.9 (1.1-1.5); ALKALINE PHOSPHATASE 202 IU/L (46-116); ASPARTATE AMINO TRANSFERASE 452 U/L (10-37); BILIRUBIN,DIRECT 0.4 MG/DL (0-0.3); BILIRUBIN,TOTAL 0.9 MG/DL (0.1-1.0)
[2022-06-25] MEDS ORDERED: bisacodyl 10mg suppository rectal RC PRN (13:10)
[2022-06-25] MEDS ORDERED: magnesium hydroxide 30ml (MOM) UD suspension PO PRN (13:10)
--- NOTE | 2022-06-25 18:10 | NUR ---
Problems reprioritized. Patient report given, questions answered & plan of care reviewed with oanh lynn.
--- NOTE | 2022-06-25 18:30 | NUR ---
Patient in room [facility] 343. I have received report from KOLE and had the opportunity to ask questions and assume patient care.
[2022-06-25 19:00] VITALS: BP 122/79
[2022-06-25] MEDS: normal saline 1000ml 1,000 ML IV SCH (19:52)
[2022-06-25] MEDS ORDERED: psyllium seed 5.8 gm packet (sugar-free) PO SCH (21:00)
[2022-06-25 23:00] VITALS: BP 123/85
[2022-06-26 06:11] LABS: BASOPHILS # (AUTO) 0.1 X10'3 (0-0.2); BASOPHILS % (AUTO) 0.7 % (0-1); EOSINOPHILS # (AUTO) 0.3 X10'3 (0-0.9); EOSINOPHILS % (AUTO) 3.1 % (0-6); HEMATOCRIT 38.4 % (35.0-45.0); HEMOGLOBIN 12.8 g/dl (12.0-16.0); LYMPHOCYTES # (AUTO) 3.1 X10'3 (1.1-4.8); LYMPHOCYTES % (AUTO) 36.3 % (21-51); MEAN CORPUSCULAR HEMOGLOBIN 31.3 PG (27.0-31.0); MEAN CORPUSCULAR HGB CONC 33.4 g/dL (33.0-36.5); MEAN CORPUSCULAR VOLUME 93.8 FL (78-98); MEAN PLATELET VOLUME 7.8 FL (7.4-10.4); MONOCYTES # (AUTO) 0.6 X10'3 (0-0.9); NEUTROPHILS # (AUTO) 4.5 X10'3 (1.8-7.7); NEUTROPHILS % (AUTO) 52.9 % (42-75); PLATELET COUNT 307 X10'3 (140-440); RED CELL DISTRIBUTION WIDTH 13.4 % (11.5-14.5); WHITE BLOOD COUNT 8.5 X10'3 (4.5-11.0)
[2022-06-26 06:26] LABS: ALANINE AMINOTRANSFERASE 460 U/L (12-78); ALBUMIN 3.5 G/DL (3.4-5.0); ALBUMIN/GLOBULIN RATIO 0.8 (1.1-1.5); ALKALINE PHOSPHATASE 193 IU/L (46-116); ANION GAP 6 (8-16); ASPARTATE AMINO TRANSFERASE 137 U/L (10-37); BILIRUBIN,TOTAL 0.3 MG/DL (0.1-1.0); BLOOD UREA NITROGEN 6 MG/DL (7-18); BUN/CREATININE RATIO 9.8 (6.6-38.0); CALCIUM 9.1 MG/DL (8.5-10.1); CHLORIDE 106 MMOL/L (99-107); CREATININE 0.61 MG/DL (0.40-0.90); GLUCOSE 116 MG/DL (70-104); MAGNESIUM 2.3 MG/DL (1.5-2.4); POTASSIUM 3.8 MMOL/L (3.5-5.1); SODIUM 140 MMOL/L (135-145); TOTAL CARBON DIOXIDE 27.6 MMOL/L (24-32); TOTAL PROTEIN 7.9 G/DL (6.4-8.2); eGFR > 90 ML/MIN
[2022-06-26 07:36] VITALS: BP 114/82
[2022-06-26 07:40] VITALS: BP 116/74
[2022-06-26] MEDS: K and/or MAG REPLACEMENT MC SCH (08:00)
[2022-06-26] MEDS: normal saline 1000ml 1,000 ML IV SCH (09:12)
[2022-06-26 12:05] VITALS: BP_SYST 114; BP_SYST 119; BP_DIAS 73; BP_DIAS 81
--- NOTE | 2022-06-26 14:35 | NUR ---
Saline lock removed with the tip intact. Discharge instructions given and verbalized understanding. Left ambulatory at 1415.
== END 2022-06-26 14:30 | disposition home or self-care (01) | DRG 921 ==
LOC: ER 21:28 → ED HOLD 06-24 06:27 → SUR 3N 06-24 10:05
PROVIDERS: ADMIT Internal Medicine; ATTEND Family Medicine
PROC: BW211ZZ Computerized Tomography (CT Scan) of Abdomen and Pelvis using Low Osmolar Contrast (ICD-10-PCS; principal; 2022-06-24)
DX: K91.872 Postprocedural seroma of a digestive system organ or structure following a digestive system procedure (principal); G47.30 Sleep apnea, unspecified; J45.909 Unspecified asthma, uncomplicated; X58.XXXA Exposure to other specified factors, initial encounter; D72.829 Elevated white blood cell count, unspecified; K59.00 Constipation, unspecified; Y83.8 Other surgical procedures as the cause of abnormal reaction of the patient, or of later complication, without mention of misadventure at the time of the procedure; Z88.2 Allergy status to sulfonamides; Z91.040 Latex allergy status; Z90.49 Acquired absence of other specified parts of digestive tract; Z79.899 Other long term (current) drug therapy; Y93.89 Activity, other specified; Y92.89 Other specified places as the place of occurrence of the external cause; Y99.8 Other external cause status
CPT/HCPCS: 36415; 74177; 74181; 80048; 80053; 80076; 83605; 83690; 83735; 84100; 84145; 85025; 87040; 87081; 96365; 96375; 99285; G0378; J1170; J2270; J2543; J3480; J3490; J7030; Q9967

== ENCOUNTER 2022-07-04 10:12 | Outpatient (CLI) | payer BC, MEDICAID ==
[2022-07-04 11:14] LABS: HCG SERUM QL NEGATIVE
[2022-07-04 11:27] LABS: ALANINE AMINOTRANSFERASE 63 U/L (12-78); ALKALINE PHOSPHATASE 110 IU/L (46-116); ANION GAP 5 (8-16); ASPARTATE AMINO TRANSFERASE 26 U/L (10-37); BILIRUBIN,TOTAL 0.4 MG/DL (0.1-1.0); BLOOD UREA NITROGEN 8 MG/DL (7-18); BUN/CREATININE RATIO 10.8 (6.6-38.0); CALCIUM 9.2 MG/DL (8.5-10.1); CHLORIDE 106 MMOL/L (99-107); CREATININE 0.74 MG/DL (0.40-0.90); GLUCOSE 100 MG/DL (70-104); POTASSIUM 4.2 MMOL/L (3.5-5.1); SODIUM 139 MMOL/L (135-145); TOTAL CARBON DIOXIDE 27.7 MMOL/L (24-32); TOTAL PROTEIN 7.9 G/DL (6.4-8.2); eGFR > 90 ML/MIN
[2022-07-05 08:12] LABS: ESTRADIOL 42.6 pg/mL (.); FSH, SERUM 6.9 mIU/mL (.); PROLACTIN 9.3 ng/mL (4.8-23.3)
== END 2022-07-04 23:59 | disposition home or self-care (01) ==
LOC: LAB 10:12
PROVIDERS: ATTEND Student in an Organized Health Care Education/Training Program
DX: R74.8 Abnormal levels of other serum enzymes (principal); N91.2 Amenorrhea, unspecified
CPT/HCPCS: 36415; 80053; 82670; 83001; 84146; 84443; 84703

== ENCOUNTER 2022-08-04 21:03 | Emergency (ER) | payer BC, MEDICAID ==
[~2022-08-04] VITALS: Ht 152.4 cm; Wt 84.8 kg
--- NOTE | 2022-08-04 21:27 | NUR ---
SOL Aden notified of pt's symptoms of "worse headache of her life" begining at 1700 with difficulty with speech at 1800 that lasted 15-20 minutes.
--- NOTE | 2022-08-04 21:33 | NUR ---
Pt moved from Fast Track 1 to ED bed 2.
[2022-08-04] MEDS ORDERED: normal saline 1000ML IV soln IVB ONE (21:45)
[2022-08-04] MEDS ORDERED: ketorolac trometh inj. 60 MG/2 ML VIAL IM ONE (21:45)
--- NOTE | 2022-08-04 21:45 | NUR ---
TO CT VIA WC
[2022-08-04] MEDS ORDERED: diphenhydrAMINE 25mg capsule PO ONE (21:55)
[2022-08-04] MEDS ORDERED: proCHLORperazine 10mg tablet PO ONE (21:55)
--- NOTE | 2022-08-04 22:11 | NUR ---
cancel stroke alert per PA.
[2022-08-04] MEDS ORDERED: morphine 4 MG/ML inj SYRINge IV ONE (23:00)
[2022-08-04 23:15] VITALS: BP 108/77
[2022-08-05] MEDS ORDERED: famotidine/PF 10 mg/ml inj IV ONE (02:30)
[2022-08-05] MEDS ORDERED: ketorolac trometh. 30mg/ml inj. IV ONE (02:30)
== END 2022-08-04 23:39 | disposition home or self-care (01) ==
LOC: ER 21:04
DX: G43.909 Migraine, unspecified, not intractable, without status migrainosus (principal); J45.909 Unspecified asthma, uncomplicated; Z91.040 Latex allergy status; Z88.5 Allergy status to narcotic agent; Z88.2 Allergy status to sulfonamides; Z88.6 Allergy status to analgesic agent; Z79.899 Other long term (current) drug therapy
CPT/HCPCS: 70450; 82948; 96361; 96372; 96374; 99285; J1885; J2270; J7030; Q0163; Q0164

== ENCOUNTER 2022-08-28 12:56 | Outpatient (CLI) | payer BC, MEDICAID ==
[2022-08-28 13:39] LABS: ALANINE AMINOTRANSFERASE 87 U/L (12-78); ALBUMIN 3.9 G/DL (3.4-5.0); ALBUMIN/GLOBULIN RATIO 1.1 (1.1-1.5); ALKALINE PHOSPHATASE 99 IU/L (46-116); ANION GAP 7 (8-16); ASPARTATE AMINO TRANSFERASE 54 U/L (10-37); BILIRUBIN,TOTAL 0.4 MG/DL (0.1-1.0); BLOOD UREA NITROGEN 9 MG/DL (7-18); BUN/CREATININE RATIO 8.5 (10.0-20.0); CALCIUM 9.2 MG/DL (8.5-10.1); CHLORIDE 103 MMOL/L (99-107); CREATININE 1.06 MG/DL (0.40-0.90); GLUCOSE 103 MG/DL (70-104); POTASSIUM 3.7 MMOL/L (3.5-5.1); SODIUM 139 MMOL/L (135-145); TOTAL CARBON DIOXIDE 28.9 MMOL/L (24-32); TOTAL PROTEIN 7.6 G/DL (6.4-8.2); eGFR 60 ML/MIN
== END 2022-08-28 23:59 | disposition home or self-care (01) ==
LOC: LAB 12:56
PROVIDERS: ATTEND Student in an Organized Health Care Education/Training Program
DX: R10.9 Unspecified abdominal pain (principal)
CPT/HCPCS: 36415; 80053

== ENCOUNTER 2022-09-10 12:05 | Emergency (ER) | payer BC, MEDICAID ==
[~2022-09-10] VITALS: Ht 152.4 cm; Wt 83.2 kg
[2022-09-10] MEDS ORDERED: metoclopramide 5 mg/ml inj IV ONE (13:35)
[2022-09-10] MEDS ORDERED: normal saline 1000ml 1,000 ML IV ONE (13:40)
--- NOTE | 2022-09-10 14:18 | NUR ---
PT TO CT AT THIS TIME
[2022-09-10 15:56] VITALS: BP 122/74
== END 2022-09-10 15:58 | disposition home or self-care (01) ==
LOC: ER 12:06
DX: G43.909 Migraine, unspecified, not intractable, without status migrainosus (principal); J45.909 Unspecified asthma, uncomplicated; F31.9 Bipolar disorder, unspecified; Z88.5 Allergy status to narcotic agent; Z88.2 Allergy status to sulfonamides; Z79.899 Other long term (current) drug therapy; Z91.040 Latex allergy status
CPT/HCPCS: 70450; 96361; 96374; 99285; J2765; J7030

== ENCOUNTER 2022-11-04 23:15 | Emergency (ER) | payer BC ==
[~2022-11-04] VITALS: Ht 165.1 cm; Wt 81.0 kg
[2022-11-04 23:18] VITALS: BP 123/79
[2022-11-04] MEDS ORDERED: ketorolac trometh inj. 60 MG/2 ML VIAL IM ONE (23:25)
== END 2022-11-04 23:33 | disposition home or self-care (01) ==
LOC: ER 23:15
DX: G43.909 Migraine, unspecified, not intractable, without status migrainosus (principal); J45.909 Unspecified asthma, uncomplicated; Z91.040 Latex allergy status; Z88.2 Allergy status to sulfonamides; Z88.5 Allergy status to narcotic agent; Z90.49 Acquired absence of other specified parts of digestive tract
CPT/HCPCS: 96372; 99283; J1885

== ENCOUNTER 2022-11-07 13:51 | Outpatient (CLI) | payer BC ==
[2022-11-07 15:22] LABS: % IRON SATURATION 15 % (11-46); IRON 52 UG/DL (49-151); TOTAL IRON BINDING CAPACITY 350 UG/DL (259-388)
[2022-11-07 16:44] LABS: FERRITIN 54 NG/ML (8-252)
[2022-11-09 08:25] LABS: ALPHA-1-ANTITRYPSIN, SERUM 109 mg/dL (100-188)
[2022-11-09 15:02] LABS: HBSAG SCREEN Negative (Negative); HEP A AB, IGM Negative (Negative); HEP B CORE AB, TOT Negative (Negative)
== END 2022-11-07 23:59 | disposition home or self-care (01) ==
LOC: LAB 13:51
PROVIDERS: ATTEND Internal Medicine Gastroenterology
DX: K76.9 Liver disease, unspecified (principal)
CPT/HCPCS: 36415; 82103; 82390; 82728; 83516; 83520; 83540; 83550; 86200; 86255; 86704; 86706; 86709; 86803; 87340

== ENCOUNTER 2022-11-19 20:38 | Emergency (ER) | payer BC ==
[~2022-11-19] VITALS: Ht 152.4 cm; Wt 85.0 kg
[2022-11-19 21:35] LABS: BASOPHILS % (AUTO) 0.5 % (0-1); EOSINOPHILS # (AUTO) 0.1 X10'3 (0-0.9); EOSINOPHILS % (AUTO) 1.2 % (0-6); HEMATOCRIT 39.4 % (35.0-45.0); HEMOGLOBIN 13.3 g/dl (12.0-16.0); LYMPHOCYTES # (AUTO) 3.3 X10'3 (1.1-4.8); LYMPHOCYTES % (AUTO) 36.5 % (21-51); MEAN CORPUSCULAR HEMOGLOBIN 31.7 PG (27.0-31.0); MEAN CORPUSCULAR HGB CONC 33.8 g/dL (33.0-36.5); MEAN CORPUSCULAR VOLUME 93.6 FL (78-98); MEAN PLATELET VOLUME 8.2 FL (7.4-10.4); MONOCYTES # (AUTO) 0.4 X10'3 (0-0.9); MONOCYTES % (AUTO) 4.8 % (2-12); NEUTROPHILS # (AUTO) 5.2 X10'3 (1.8-7.7); PLATELET COUNT 306 X10'3 (140-440); RED BLOOD COUNT 4.21 X10'6 (4.20-5.60); RED CELL DISTRIBUTION WIDTH 13.1 % (11.5-14.5); WHITE BLOOD COUNT 9.1 X10'3 (4.5-11.0)
[2022-11-19 21:36] LABS: ALANINE AMINOTRANSFERASE 37 U/L (12-78); ALBUMIN 3.9 G/DL (3.4-5.0); ALBUMIN/GLOBULIN RATIO 1.1 (1.1-1.5); ALKALINE PHOSPHATASE 80 IU/L (46-116); ANION GAP 11 (8-16); ASPARTATE AMINO TRANSFERASE 19 U/L (10-37); BILIRUBIN,TOTAL 0.3 MG/DL (0.1-1.0); BLOOD UREA NITROGEN 7 MG/DL (7-18); BUN/CREATININE RATIO 9.6 (10.0-20.0); CALCIUM 9.2 MG/DL (8.5-10.1); CHLORIDE 104 MMOL/L (99-107); CREATININE 0.73 MG/DL (0.40-0.90); GLUCOSE 107 MG/DL (70-104); POTASSIUM 3.7 MMOL/L (3.5-5.1); SODIUM 141 MMOL/L (135-145); TOTAL CARBON DIOXIDE 26.5 MMOL/L (24-32); TOTAL PROTEIN 7.5 G/DL (6.4-8.2); eGFR > 90 ML/MIN
[2022-11-19 21:40] VITALS: BP 121/83; PULSE 82; TEMP 97.2; O2SAT 99
[2022-11-19 21:46] LABS: URINE HCG NEGATIVE (NEG)
[2022-11-19 21:47] LABS: COLOR,URINE YELLOW (Yellow); GLUCOSE, URINE NEGATIVE (Neg); KETONES,URINE NEGATIVE (Neg); LEUKOCYTE ESTERASE ,URINE NEGATIVE (Neg); NITRITES, URINE NEGATIVE (Neg); OCCULT BLOOD,URINE LARGE (Neg); PROTEIN,URINE NEGATIVE (Neg); UROBILINOGEN,URINE 0.2 E.U/dL (0.2-1.0)
[2022-11-19 21:57] LABS: UA COLLECTION TYPE CLN CATCH MIDSTREAM
[2022-11-19 21:58] LABS: CLARITY,URINE SLIGHTLY CLOUDY (Clear)
[2022-11-19 21:59] LABS: BACTERIA,URINE FEW /HPF (Neg); MUCUS STRANDS FEW /LPF (Neg); SQUAMOUS EPITHELIAL CELL,UR FEW /LPF (FEW); WBC,URINE 0-4 /HPF (0-4)
[2022-11-19] MEDS ORDERED: ketorolac trometh inj. 60 MG/2 ML VIAL IM ONE (22:25)
[2022-11-19] MEDS ORDERED: IBUP-1986 PO (22:26)
[2022-11-19 22:39] VITALS: RESP 20
== END 2022-11-19 22:48 | disposition home or self-care (01) ==
LOC: ER 20:40
DX: N94.6 Dysmenorrhea, unspecified (principal); G43.909 Migraine, unspecified, not intractable, without status migrainosus; J45.909 Unspecified asthma, uncomplicated; F41.9 Anxiety disorder, unspecified; Z90.49 Acquired absence of other specified parts of digestive tract; Z91.040 Latex allergy status; Z88.5 Allergy status to narcotic agent; Z88.2 Allergy status to sulfonamides; Z79.899 Other long term (current) drug therapy
CPT/HCPCS: 36415; 76830; 76856; 80053; 81001; 81025; 85025; 93976; 96372; 99285; J1885

== ENCOUNTER 2023-03-01 11:44 | Outpatient (CLI) | payer BC ==
[~2023-03-01 11:44] MED LIST changes: +IBUP-1986 PO
[2023-03-01 12:53] LABS: ALANINE AMINOTRANSFERASE 31 U/L (12-78); ALBUMIN 3.9 G/DL (3.4-5.0); ALBUMIN/GLOBULIN RATIO 1.1 (1.1-1.5); ALKALINE PHOSPHATASE 88 IU/L (46-116); ASPARTATE AMINO TRANSFERASE 20 U/L (10-37); BILIRUBIN,DIRECT 0.1 MG/DL (0-0.3); BILIRUBIN,TOTAL 0.4 MG/DL (0.1-1.0); TOTAL PROTEIN 7.6 G/DL (6.4-8.2)
== END 2023-03-01 23:59 | disposition home or self-care (01) ==
LOC: LAB 11:44
PROVIDERS: ATTEND Internal Medicine Gastroenterology
DX: K76.9 Liver disease, unspecified (principal)
CPT/HCPCS: 36415; 80076

== ENCOUNTER 2023-05-05 20:39 | Emergency (ER) | payer BC ==
[~2023-05-05] VITALS: Ht 152.4 cm; Wt 81.8 kg
[2023-05-05 21:50] LABS: BASOPHILS % (AUTO) 0.1 % (0-1); EOSINOPHILS # (AUTO) 0.2 X10'3 (0-0.9); EOSINOPHILS % (AUTO) 1.6 % (0-6); HEMOGLOBIN 13.2 g/dl (12.0-16.0); LYMPHOCYTES # (AUTO) 3.9 X10'3 (1.1-4.8); LYMPHOCYTES % (AUTO) 35.4 % (21-51); MEAN CORPUSCULAR HGB CONC 33.9 g/dL (33.0-36.5); MEAN CORPUSCULAR VOLUME 94.3 FL (78-98); MEAN PLATELET VOLUME 7.8 FL (7.4-10.4); MONOCYTES # (AUTO) 0.6 X10'3 (0-0.9); MONOCYTES % (AUTO) 5.6 % (2-12); NEUTROPHILS # (AUTO) 6.3 X10'3 (1.8-7.7); NEUTROPHILS % (AUTO) 57.3 % (42-75); PLATELET COUNT 319 X10'3 (140-440); RED BLOOD COUNT 4.14 X10'6 (4.20-5.60); RED CELL DISTRIBUTION WIDTH 13.2 % (11.5-14.5); WHITE BLOOD COUNT 11.1 X10'3 (4.5-11.0)
[2023-05-05 22:13] LABS: ALANINE AMINOTRANSFERASE 47 U/L (12-78); ALBUMIN 3.7 G/DL (3.4-5.0); ALKALINE PHOSPHATASE 81 IU/L (46-116); ANION GAP 9 (8-16); ASPARTATE AMINO TRANSFERASE 37 U/L (10-37); BILIRUBIN,TOTAL 0.3 MG/DL (0.1-1.0); BLOOD UREA NITROGEN 6 MG/DL (7-18); BUN/CREATININE RATIO 8.1 (10.0-20.0); CALCIUM 8.5 MG/DL (8.5-10.1); CHLORIDE 103 MMOL/L (99-107); CREATININE 0.74 MG/DL (0.40-0.90); GLUCOSE 96 MG/DL (70-104); POTASSIUM 3.1 MMOL/L (3.5-5.1); SODIUM 139 MMOL/L (135-145); TOTAL CARBON DIOXIDE 27.1 MMOL/L (24-32); TOTAL PROTEIN 7.5 G/DL (6.4-8.2); eCRCL 78 ML/MIN; eGFR > 90 ML/MIN
[2023-05-05 22:14] LABS: THYROID STIMULATING HORMONE 2.38 ulU/ml (0.34-4.50)
[2023-05-05 23:09] VITALS: BP 114/62; PULSE 82; RESP 16; TEMP 98.7; O2SAT 97
== END 2023-05-05 23:10 | disposition home or self-care (01) ==
LOC: ER 20:40
DX: R05.9 Cough, unspecified (principal); Z20.822 Contact with and (suspected) exposure to COVID-19; E87.6 Hypokalemia; H65.92 Unspecified nonsuppurative otitis media, left ear; G43.909 Migraine, unspecified, not intractable, without status migrainosus; J45.909 Unspecified asthma, uncomplicated; Z90.49 Acquired absence of other specified parts of digestive tract; Z88.8 Allergy status to other drugs, medicaments and biological substances; Z88.5 Allergy status to narcotic agent; Z88.2 Allergy status to sulfonamides; Z91.040 Latex allergy status; Z79.899 Other long term (current) drug therapy
CPT/HCPCS: 36415; 71045; 80053; 84443; 84484; 85025; 87502; 87503; 87811; 93005; 99285

== ENCOUNTER 2023-09-23 11:59 | Emergency (ER) | payer BC ==
[~2023-09-23] VITALS: Ht 152.4 cm; Wt 81.8 kg
[2023-09-23 12:00] VITALS: BP 121/91; PULSE 95; RESP 16; TEMP 99.1; O2SAT 96
[2023-09-23 12:24] LABS: STREP A SCREEN NEGATIVE (Neg)
[2023-09-23] MEDS ORDERED: LIDO15SO9 PO (13:07)
[2023-09-23] MEDS ORDERED: PENI500T2 PO (13:07)
[2023-09-23] MEDS ORDERED: DIF150T PO (14:09)
== END 2023-09-23 14:09 | disposition home or self-care (01) ==
LOC: ER 11:59
DX: J02.0 Streptococcal pharyngitis (principal); Z88.8 Allergy status to other drugs, medicaments and biological substances; Z91.040 Latex allergy status; J45.909 Unspecified asthma, uncomplicated; G47.30 Sleep apnea, unspecified; F41.9 Anxiety disorder, unspecified; F32.A Depression, unspecified; Z90.49 Acquired absence of other specified parts of digestive tract; Z79.899 Other long term (current) drug therapy
CPT/HCPCS: 87081; 87880; 99283

== ENCOUNTER 2024-01-14 08:59 | Emergency (ER) | payer BC ==
[~2024-01-14] VITALS: Ht 152.4 cm; Wt 79.0 kg
[~2024-01-14 08:59] MED LIST changes: +LIDO15SO9 PO
[2024-01-14 09:12] VITALS: TEMP 98.9
[2024-01-14] MEDS: SUMAtriptan 25 MG tablet PO STA (11:19)
[2024-01-14] MEDS: ketorolac trometh 30MG/ML vial 30 MG/ML VIAL IM STA (11:23)
[2024-01-14 11:25] VITALS: BP 128/88; PULSE 77; RESP 16; O2SAT 98
== END 2024-01-14 11:30 | disposition home or self-care (01) ==
LOC: ER 09:00
DX: G43.909 Migraine, unspecified, not intractable, without status migrainosus (principal); J45.909 Unspecified asthma, uncomplicated; F41.9 Anxiety disorder, unspecified; F32.A Depression, unspecified; G47.39 Other sleep apnea; Z88.8 Allergy status to other drugs, medicaments and biological substances; Z91.040 Latex allergy status; Z79.899 Other long term (current) drug therapy; Z79.1 Long term (current) use of non-steroidal anti-inflammatories (NSAID); Z79.84 Long term (current) use of oral hypoglycemic drugs; Z90.49 Acquired absence of other specified parts of digestive tract; Z98.890 Other specified postprocedural states
CPT/HCPCS: 96372; 99283; J1885

== ENCOUNTER 2024-01-26 22:37 | Emergency (ER) | payer BC ==
[~2024-01-26] VITALS: Ht 152.4 cm; Wt 82.3 kg
[2024-01-26 23:01] VITALS: PULSE 123; TEMP 99.2
[2024-01-27 02:56] VITALS: RESP 16
== END 2024-01-27 02:58 | disposition home or self-care (01) ==
LOC: ER 22:38
DX: J06.9 Acute upper respiratory infection, unspecified (principal); J45.909 Unspecified asthma, uncomplicated; Z88.1 Allergy status to other antibiotic agents; Z88.2 Allergy status to sulfonamides; Z88.5 Allergy status to narcotic agent; Z88.6 Allergy status to analgesic agent; Z91.040 Latex allergy status; Z87.440 Personal history of urinary (tract) infections; Z20.822 Contact with and (suspected) exposure to COVID-19
CPT/HCPCS: 36415; 71046; 87502; 87503; 87811; 99284

== ENCOUNTER 2024-01-28 06:19 | Emergency (ER) | payer BC ==
[~2024-01-28] VITALS: Ht 152.4 cm; Wt 82.3 kg
[2024-01-28] MEDS: normal saline 1000ML IV soln IVB ONE (07:47)
[2024-01-28 07:48] LABS: BASOPHILS % (AUTO) 0.6 % (0-1); EOSINOPHILS % (AUTO) 0.2 % (0-6); HEMATOCRIT 38.2 % (35.0-45.0); HEMOGLOBIN 13.6 g/dl (12.0-16.0); LYMPHOCYTES # (AUTO) 0.6 X10'3 (1.1-4.8); LYMPHOCYTES % (AUTO) 16.5 % (21-51); MEAN CORPUSCULAR HEMOGLOBIN 32.9 PG (27.0-31.0); MEAN CORPUSCULAR HGB CONC 35.5 g/dL (33.0-36.5); MEAN CORPUSCULAR VOLUME 92.6 FL (78-98); MEAN PLATELET VOLUME 7.9 FL (7.4-10.4); MONOCYTES # (AUTO) 0.2 X10'3 (0-0.9); NEUTROPHILS % (AUTO) 77.7 % (42-75); PLATELET COUNT 193 X10'3 (140-440); RED BLOOD COUNT 4.12 X10'6 (4.20-5.60); WHITE BLOOD COUNT 3.9 X10'3 (4.5-11.0)
[2024-01-28 07:55] LABS: ALBUMIN 3.3 G/DL (3.4-5.0); ANION GAP 8 (8-16); BLOOD UREA NITROGEN 7 MG/DL (7-18); BUN/CREATININE RATIO 8.1 (10.0-20.0); CALCIUM 8.2 MG/DL (8.5-10.1); CHLORIDE 100 MMOL/L (99-107); CREATININE 0.86 MG/DL (0.40-0.90); GLUCOSE 116 MG/DL (70-104); POTASSIUM 3.1 MMOL/L (3.5-5.1); SODIUM 134 MMOL/L (135-145); TOTAL CARBON DIOXIDE 26.3 MMOL/L (24-32); eCRCL 67 ML/MIN; eGFR 76 ML/MIN
[2024-01-28 09:04] LABS: BILIRUBIN,URINE SMALL (Neg); CLARITY,URINE SLIGHTLY CLOUDY (Clear); COLOR,URINE YELLOW (Yellow); GLUCOSE, URINE 100 mg/dl (Neg); KETONES,URINE NEGATIVE (Neg); LEUKOCYTE ESTERASE ,URINE NEGATIVE (Neg); NITRITES, URINE NEGATIVE (Neg); OCCULT BLOOD,URINE NEGATIVE (Neg); PROTEIN,URINE TRACE mg/dl (Neg)
[2024-01-28 09:10] LABS: UA COLLECTION TYPE CLN CATCH MIDSTREAM
[2024-01-28 09:11] LABS: SQUAMOUS EPITHELIAL CELL,UR MANY /LPF (FEW)
[2024-01-28 09:12] LABS: BACTERIA,URINE 1+ /HPF (Neg)
[2024-01-28 09:13] LABS: RBC,URINE 0-2 /HPF (0-2)
[2024-01-28] MEDS: potassium Cl 20 mEq SR tablet PO STA (09:13)
[2024-01-28] MEDS: dexamethasone sod phosphate 10mg/ml inj IV STA (09:13)
[2024-01-28 09:14] LABS: WBC,URINE 0-4 /HPF (0-4)
[2024-01-28 09:42] VITALS: BP 118/81; PULSE 98; RESP 15; TEMP 99.6; O2SAT 97
== END 2024-01-28 09:45 | disposition home or self-care (01) ==
LOC: ER 06:20
DX: J20.9 Acute bronchitis, unspecified (principal); E87.6 Hypokalemia; G43.909 Migraine, unspecified, not intractable, without status migrainosus; J45.909 Unspecified asthma, uncomplicated; F41.9 Anxiety disorder, unspecified; F32.A Depression, unspecified; Z91.040 Latex allergy status; Z88.5 Allergy status to narcotic agent; Z88.2 Allergy status to sulfonamides; Z79.1 Long term (current) use of non-steroidal anti-inflammatories (NSAID); Z79.899 Other long term (current) drug therapy; Z79.84 Long term (current) use of oral hypoglycemic drugs; Z90.49 Acquired absence of other specified parts of digestive tract
CPT/HCPCS: 36415; 80048; 81001; 84145; 85025; 96361; 96374; 99285; J1100; J7030

== ENCOUNTER 2024-06-29 12:32 | Emergency (ER) | payer BC ==
[~2024-06-29] VITALS: Ht 152.4 cm; Wt 84.0 kg
[2024-06-29 12:47] VITALS: BP 127/86; PULSE 92; RESP 16; O2SAT 97
[2024-06-29] MEDS ORDERED: AMOX-117 PO (13:26)
[2024-06-29 13:49] VITALS: TEMP 98.4
== END 2024-06-29 13:51 | disposition home or self-care (01) ==
LOC: ER 12:32
DX: H66.92 Otitis media, unspecified, left ear (principal); G47.30 Sleep apnea, unspecified; J45.909 Unspecified asthma, uncomplicated; Z88.2 Allergy status to sulfonamides; Z88.5 Allergy status to narcotic agent; Z88.6 Allergy status to analgesic agent; Z91.040 Latex allergy status; Z88.1 Allergy status to other antibiotic agents; Z90.49 Acquired absence of other specified parts of digestive tract
CPT/HCPCS: 99283

== ENCOUNTER 2024-09-04 12:09 | Inpatient (IN) | payer BC ==
[~2024-09-04] VITALS: Ht 152.4 cm; Wt 81.8 kg
[2024-09-04 13:17] LABS: BASOPHILS % (AUTO) 0.6 % (0-1); EOSINOPHILS # (AUTO) 0.2 X10'3 (0-0.9); EOSINOPHILS % (AUTO) 2.6 % (0-6); HEMATOCRIT 39.7 % (35.0-45.0); HEMOGLOBIN 13.7 g/dl (12.0-16.0); LYMPHOCYTES # (AUTO) 2.7 X10'3 (1.1-4.8); LYMPHOCYTES % (AUTO) 35.8 % (21-51); MEAN CORPUSCULAR HEMOGLOBIN 31.6 PG (27.0-31.0); MEAN CORPUSCULAR HGB CONC 34.4 g/dL (33.0-36.5); MEAN CORPUSCULAR VOLUME 91.8 FL (78-98); MEAN PLATELET VOLUME 7.8 FL (7.4-10.4); MONOCYTES # (AUTO) 0.5 X10'3 (0-0.9); NEUTROPHILS # (AUTO) 4.1 X10'3 (1.8-7.7); PLATELET COUNT 323 X10'3 (140-440); RED BLOOD COUNT 4.32 X10'6 (4.20-5.60); RED CELL DISTRIBUTION WIDTH 13.1 % (11.5-14.5); WHITE BLOOD COUNT 7.5 X10'3 (4.5-11.0)
[2024-09-04 13:38] LABS: ALANINE AMINOTRANSFERASE 34 U/L (12-78); ALBUMIN 3.9 G/DL (3.4-5.0); ALBUMIN/GLOBULIN RATIO 1.1 (1.1-1.5); ALKALINE PHOSPHATASE 96 IU/L (46-116); ANION GAP 10 (8-16); ASPARTATE AMINO TRANSFERASE 23 U/L (10-37); BILIRUBIN,TOTAL 0.5 MG/DL (0.1-1.0); BLOOD UREA NITROGEN 9 MG/DL (7-18); BUN/CREATININE RATIO 12.2 (10.0-20.0); CALCIUM 9.2 MG/DL (8.5-10.1); CHLORIDE 103 MMOL/L (99-107); CREATININE 0.74 MG/DL (0.40-0.90); GLUCOSE 101 MG/DL (70-104); LIPASE 20 U/L (16-77); POTASSIUM 3.6 MMOL/L (3.5-5.1); SODIUM 139 MMOL/L (135-145); TOTAL CARBON DIOXIDE 25.9 MMOL/L (24-32); TOTAL PROTEIN 7.6 G/DL (6.4-8.2); eCRCL 78 ML/MIN; eGFR 90 ML/MIN
[2024-09-04 15:51] LABS: URINE HCG NEGATIVE (NEG)
[2024-09-04 15:53] LABS: BILIRUBIN,URINE NEGATIVE (Neg); CLARITY,URINE SLIGHTLY CLOUDY (Clear); COLOR,URINE YELLOW (Yellow); GLUCOSE, URINE NEGATIVE (Neg); KETONES,URINE NEGATIVE (Neg); LEUKOCYTE ESTERASE ,URINE NEGATIVE (Neg); NITRITES, URINE NEGATIVE (Neg); OCCULT BLOOD,URINE LARGE (Neg); PH,URINE 6.5 (4.8-8.0); PROTEIN,URINE 30 mg/dl (Neg); UROBILINOGEN,URINE 0.2 E.U/dL (0.2-1.0)
[2024-09-04 15:55] LABS: UA COLLECTION TYPE VOIDED
[2024-09-04] MEDS ORDERED: iohexol 350MG/ML 100ml bottle IV ONE (15:56)
[2024-09-04 16:17] LABS: BACTERIA,URINE 1+ /HPF (Neg); RBC,URINE 20-50 /HPF (0-2); WBC,URINE 0-4 /HPF (0-4)
[2024-09-04 16:18] LABS: SQUAMOUS EPITHELIAL CELL,UR FEW /LPF (FEW)
--- NOTE | 2024-09-04 16:52 | RADIOLOGY REPORT ---
Technique: Real-time ultrasound images through the pelvis using a transabdominal transducer. Indication: vaginal bleeding and pain Comparison: US ULTRASOUND PELVIS W/ORWO DPLX on DOS: 11/19/22 Findings: The uterus is normal in size, measuring 8.3 cm. Suboptimal characterization of the uterus The endome trial stripe measures 6 mm. There are no focal masses. There is no abnormal flow in the endometrium. Intrauterine device terminates near the region. Right ovary measures 2.4 x 1.7 x 1.1 cm. Normal flow on color doppler images. No focal masses are tha ntified. Left ovary measures 3.8 x 2.7 x 2.3 cm. Normal flow on color doppler images. No focal masses are tha ntified. There is no significant free fluid in the pelvis. Impression: 1. Intrauterine device terminates near the fundal region. 2. Endometrial thickness of 6 mm, overall suboptimally characterized.
--- NOTE | 2024-09-04 17:21 | RADIOLOGY REPORT ---
Exam: CT CT ABDOMEN PELVIS W/ IV CONTRAST History: lower abd pain, RLQ abd pain COMPARISON: CT ABDOMEN PELVIS on DOS: 08/05/22, CT ABDOMEN PELVIS on DOS: 06/24/22 Technique: Multidetector spiral CT of the abdomen and pelvis was performed from lung bases to pubic symphysis. Intravenous contrast was administered during this examination. Portal venous imaging was obtained. Axial, coronal and sagittal multiplanar reformats were performed by the technologist on a separate workstation. Radiation Dose : Abdomen/Pelvis: CTDIvol 22 mGy, DLP 1239 mGy*cm. CONTRAST: Type of contrast: Omni 300 Contrast injected: 100 mL Findings: Lung Bases: No acute or significant lung base finding. Normal heart size. No pleural or pericardial effusion. Liver: Diffuse hepatic steatosis. Gallbladder and biliary Tree: Gallbladder is surgically absent. Spleen: Unremarkable Pancreas: The pancreas is normal in appearance without focal lesions or abnormal enhancement. Adrenal Glands: Unremarkable Kidneys: No hydronephrosis. Bladder: Unremarkable Bowel: The stomach is grossly normal in appearance. Small bowel and colon are normal in caliber and d istribution. Appendix is prominent measuring up to 9 mm. There is minimal periappendiceal stranding. Ascites: Absent Lymphadenopathy: No mesenteric, retroperitoneal or periportal lymphadenopathy. Abdominal wall and Mesentery: Unremarkable. Vasculature: The visualized abdominal aorta is normal in size and caliber. Abdominal and pelvic vess els demonstrate normal enhancement. Pelvic Organs: Intrauterine device in place. Musculoskeletal: No aggressive focal bony lesions, acute fractures or dislocation. IMPRESSION: 1. Dilated appendix with minimal periappendiceal stranding, findings are suspicious for early acute a ppendicitis. No evidence of rupture. Surgical evaluation is recommended. Critical Result: Acute appendicitis Findings discussed with JAY VIVAS at 09/04/2024 05:15 PM, and acknowledged receipt and understa nding of the findings. Radiation optimization: All CT scans at this facility use at least one of these dose optimization [place] hniques: Automated exposure control mA and/or kV adjustment per patient size (includes targeted exams where dose is matched to clinical indication) or iterative reconstruction. HS:Y
--- NOTE | 2024-09-04 18:08 | Physician Documentation ---
History of Present Illness Chief Complaint: Abdominal Pain Stated Complaint: ABD PAIN Time Seen by MD: 14:36 Primary Medical Doctor: JT CHILDS Patient is seen today with complaints of right lower quadrant abdominal pain that started two days ago. Patient states she has not had an appetite for two days and has had some nausea and vomiting. Patient states she has not really eaten anything over the last couple of days. Patient denies any chest pain or shortness of breath or diarrhea. Patient states she does have an IUD in place and has not had any vaginal bleeding or menstruation and has not had a period in about a year but states she just started having some vaginal bleeding a couple of days ago around the same time with some cramping. Patient states she has history of uterine fibroid. She has no other concern or complaint at this time. Medication Reconciliation Allergies: Coded Allergies: Latex, Natural Rubber (Verified Allergy, Intermediate, RED AND IRRITATED SKIN, 09/04/24) hydromorphone (Verified Allergy, Intermediate, 09/04/24) rash, itching sulfamethoxazole (Verified Allergy, Intermediate, HIVES, 09/04/24) trimethoprim (Verified Allergy, Intermediate, HIVES, 09/04/24) morphine (Verified Allergy, Unknown, 09/04/24) aspirin (Verified Adverse Reaction, Mild, VOMITING, 09/04/24) Scheduled Ibuprofen (Ibuprofen), 1 TAB PO Q8H Lidocaine HCl (Lidocaine HCl Viscous), 5 ML PO TID Metformin HCl (Metformin HCl), 1 TAB PO TID, (Reported) Paroxetine HCl (Paroxetine HCl), 1 TAB PO DAILY, (Reported) Propranolol Hcl (Propranolol Hcl), 2 TAB PO TID, (Reported) Past Medical History Past Medical History: Migraine, Asthma, Bronchitis, Pneumonia, Sleep Apnea, *GI/HEPATOBILIARY*, Cholelithiasis, UTI, Anxiety, Depression Past Surgical History: cholecystectomy, other Other Past Surgical History: [place] teeth removal Alcohol Use: None Drug Use: none Lives In: Home Occupation: employed Review of Systems Constitutional: Denies: chills, fever, weakness Eyes: Denies: pain, blurred vision ENT: Denies: ear pain, nose pain, throat pain, mouth pain Respiratory: Denies: cough, shortness of breath Cardiovascular: Denies: chest pain, palpitations Gastrointestinal: Denies: abdominal pain, nausea, vomiting Genitourinary: Denies: burning, dysuria Female Genitalia: Denies: vaginal discharge, pelvic pain Neurological: Denies: headache, dizziness Musculoskeletal: Denies: pain, swelling Integumentary: Denies: rash, lesions Allergic/Immunologic: Denies: hives, itching Hematologic/Lymphatic: Denies: no symptoms reported Psychiatric: Denies: depression, anxiety Physical Exam Vital Signs: Temperature: 98.6, Source: Oral, Heart Rate: 82, Respiratory Rate: 16, BP: 104/63, Pulse Oximetry: 96, Weight: 75.400 Oxygen Flow Rate: 0 Physical Exam General: Awake and Alert, no acute distress. HEENT: Conjunctiva pink, Sclera clear, Mucus Membranes moist. Neck: Supple without masses and tenderness. Resp: Unlabored. Lungs clear to auscultation bilaterally. Heart: Regular Rate and rhythm, normal S1 and S2 without murmur, rub or gallop. Abdomen: On exam patient has significant tenderness to palpation in the right lower quadrant of the abdomen with rebound tenderness and with minimal guarding. There are no masses, abdomen is soft and nondistended. Extremities: No cyanosis,clubbing or edema. Skin: Warm and Dry. Progress Results/Orders Results/Orders Orders - JAY VIVAS R PAC Saline Lock (09/04/24 ) Ct Abdomen Pelvis (09/04/24 16:30) Ultrasound Pelvis W/Orwo Dplx (09/04/24 15:18) Completed Orders - JAY VIVAS R PAC Ct Abdomen Pelvis (09/04/24 16:30) Ultrasound Pelvis W/Orwo Dplx (09/04/24 15:18) Lacticsepsis (09/04/24 15:23) Procalcitonin (09/04/24 15:23) Iohexol 350mg/Ml 100ml (Omnipaque 350mg/ (09/04/24 15:56) Vital Signs 09/04/24 09/04/24 09/04/24 12:34 14:26 14:26 Temp 98.6 Pulse 99 82 Resp 16 16 B/P (MAP) 129/82 104/63 (77) Pulse Ox 98 96 O2 Flow Rate 0 0 Laboratory Tests Test 09/04/24 13:03 09/04/24 13:08 09/04/24 15:30 09/04/24 15:35 White Blood Count 7.5 Red Blood Count 4.32 Hemoglobin 13.7 Hematocrit 39.7 Mean Corpuscular Volume 91.8 Mean Corpuscular Hemoglobin 31.6 H Mean Corpuscular Hemoglobin Concent 34.4 Red Cell Distribution Width 13.1 Platelet Count 323 Mean Platelet Volume 7.8 Neutrophils (%) (Auto) 55.0 Lymphocytes (%) (Auto) 35.8 Monocytes (%) (Auto) 6.0 Eosinophils (%) (Auto) 2.6 Basophils (%) (Auto) 0.6 Neutrophils # (Auto) 4.1 Lymphocytes # (Auto) 2.7 Monocytes # (Auto) 0.5 Eosinophils # (Auto) 0.2 Basophils # (Auto) 0.0 CBC Comment Sodium Level 139 Potassium Level 3.6 Chloride Level 103 Carbon Dioxide Level 25.9 Anion Gap 10 Blood Urea Nitrogen 9 Creatinine 0.74 Estimated GFR/1.73 m2 90 BUN/Creatinine Ratio 12.2 Glucose Level 101 Calcium Level 9.2 Total Bilirubin 0.5 Aspartate Amino Transf (AST/SGOT) 23 Alanine Aminotransferase (ALT/SGPT) 34 Alkaline Phosphatase 96 Total Protein 7.6 Albumin 3.9 Globulin 3.7 Albumin/Globulin Ratio 1.1 Lipase 20 Chemistry Comments Urine Specimen Description Voided Urine Color Yellow Urine Clarity Slightly cloudy Urine pH 6.5 Urine Specific [place] 1.025 Urine Protein 30 H Urine Glucose (UA) Negative Urine Ketones Negative Urine Occult Blood Large H Urine Nitrite Negative Urine Bilirubin Negative Urine Urobilinogen 0.2 Urine Leukocyte Esterase Negative Urine RBC 20-50 Urine WBC 0-4 Urine Squamous Epithelial Cells Few Urine Bacteria 1+ Urine Culture Indicated Not ind Volume Urine Centrifuged 10 ml Urine HCG, Qualitative Negative Urine Comment Lactic Acid Level 0.8 Procalcitonin < 0.05 EKG/XRAY/CT/US/VASC/MRI CT : Impression CAT SCAN Patient: TYRA SNYDER Medical Record: [id number] ELIZABETH FORT THOMAS : 1990, Age: 33 Sex: Female Location: ER Patient Status: [facility] ER Service Date/Time: 09/04/241629 Ordering Physician: JAY VIVAS PAC Exam: CT ABDOMEN PELVIS Exam: CT CT ABDOMEN PELVIS W/ IV CONTRAST History: lower abd pain, RLQ abd pain COMPARISON: CT ABDOMEN PELVIS on DOS: 08/05/22, CT ABDOMEN PELVIS on DOS: 06/24/22 Technique: Multidetector spiral CT of the abdomen and pelvis was performed from lung bases to pubic symphysis. Intravenous contrast was administered during this examination. Portal venous imaging was obtained. Axial, coronal and sagittal multiplanar reformats were performed by the technologist on a separate workstation. Radiation Dose : Abdomen/Pelvis: CTDIvol 22 mGy, DLP 1239 mGy*cm. CONTRAST: Type of contrast: Omni 300 Contrast injected: 100 mL Findings: Lung Bases: No acute or significant lung base finding. Normal heart size. No pleural or pericardial effusion. Liver: Diffuse hepatic steatosis. Gallbladder and biliary Tree: Gallbladder is surgically absent. Spleen: Unremarkable Pancreas: The pancreas is normal in appearance without focal lesions or abnormal enhancement. Adrenal Glands: Unremarkable Kidneys: No hydronephrosis. Bladder: Unremarkable Bowel: The stomach is grossly normal in appearance. Small bowel and colon are normal in caliber and distribution. Appendix is prominent measuring up to 9 mm. There is minimal periappendiceal stranding. Ascites: Absent Lymphadenopathy: No mesenteric, retroperitoneal or periportal lymphadenopathy. Abdominal wall and Mesentery: Unremarkable. Vasculature: The visualized abdominal aorta is normal in size and caliber. Abdominal and pelvic vessels demonstrate normal enhancement. Pelvic Organs: Intrauterine device in place. Musculoskeletal: No aggressive focal bony lesions, acute fractures or dislocation. IMPRESSION: 1. Dilated appendix with minimal periappendiceal stranding, findings are suspicious for early acute appendicitis. No evidence of rupture. Surgical evaluation is recommended. Critical Result: Acute appendicitis Findings discussed with JAY VIVAS at 09/04/2024 05:15 PM, and acknowledged receipt and understanding of the findings. Radiation optimization: All CT scans at this facility use at least one of these dose optimization techniques: Automated exposure control mA and/or kV adjustment per patient size (includes targeted exams where dose is matched to clinical indication) or iterative reconstruction. HS:Y Electronically Signed by:ONUR HARTLEY MD Date & Time: 09/04/241717 Dictated by: ONUR HARTLEY MD Dictation date and time: 09/04/241717 Primary Care Provider: NO PRIMARY CARE PROVIDER cc: JAY VIVAS PAC ~ Ultrasound : Impression ULTRASOUND Patient: TYRA SNYDER Medical Record: [id number] ELIZABETH FORT THOMAS : 1990, Age: 33 Sex: Female Location: ER Patient Status: [facility] ER Service Date/Time: 09/04/241517 Ordering Physician: JAY VIVAS PAC Exam: ULTRASOUND PELVIS W/ORWO DPLX Technique: Real-time ultrasound images through the pelvis using a transabdominal transducer. Indication: vaginal bleeding and pain Comparison: US ULTRASOUND PELVIS W/ORWO DPLX on DOS: 11/19/22 Findings: The uterus is normal in size, measuring 8.3 cm. Suboptimal characterization of the uterus The endometrial stripe measures 6 mm. There are no focal masses. There is no abnormal flow in the endometrium. Intrauterine device terminates near the region. Right ovary measures 2.4 x 1.7 x 1.1 cm. Normal flow on color doppler images. No focal masses are identified. Left ovary measures 3.8 x 2.7 x 2.3 cm. Normal flow on color doppler images. No focal masses are identified. There is no significant free fluid in the pelvis. Impression: 1. Intrauterine device terminates near the fundal region. 2. Endometrial thickness of 6 mm, overall suboptimally characterized. Electronically Signed by:ALEKSANDR VILLELA MD Date & Time: 09/04/241649 Dictated by: ALEKSANDR VILLELA MD Dictation date and time: 09/04/241649 Primary Care Provider: NO PRIMARY CARE PROVIDER cc: JAY VIVAS PAC ~ Medical Decision Making Findings Patient is seen today with complaints of right lower quadrant abdominal pain that started two days ago. Patient states she has not had an appetite for two days and has had some nausea and vomiting. Patient states she has not really eaten anything over the last couple of days. Patient denies any chest pain or shortness of breath or diarrhea. Patient states she does have an IUD in place and has not had any vaginal bleeding or menstruation and has not had a period in about a year but states she just started having some vaginal bleeding a couple of days ago around the same time with some cramping. Patient states she has history of uterine fibroid. She has no other concern or complaint at this time. CT scan of the abdomen and pelvis did show early signs of acute appendicitis without rupture and recommended surgical consult. Patient however states that she would like to speak seen by Dr. Christensen who actually removed her gallbladder previously. Patient states she does not want to be seen currently by Dr. Ramirez. Patient still has no appetite. Patient will be NPO at midnight. Patient has no other concern or complaint at this time. Departure Disposition: 09 ADMITTED INPATIENT Admitted to Inpatient Unit: to hospitalist Admission Level of Care: Med/Surg with Tele Impression: Primary Impression: Abdominal pain Qualified Codes: R10.31 - Right lower quadrant pain Additional Impression: Acute appendicitis Qualified Codes: K35.30 - Acute appendicitis with localized peritonitis, without perforation or gangrene Condition: Improved Additional Instructions: CT scan of the abdomen and pelvis did show early signs of acute appendicitis without rupture and recommended surgical consult. Patient however states that she would like to speak seen by Dr. Christensen who actually removed her gallbladder previously. Patient states she does not want to be seen currently by Dr. Ramirez. Patient still has no appetite. Patient will be NPO at midnight. Patient has no other concern or complaint at this time. Referrals: NO PRIMARY CARE PROVIDER (PCP) Additional Comment Additional Comment Received report manipulate her well by a previous provider once unlike awaiting hospitalist admission. Agree with patient's initial assessment and documentation Signature Scribe Signature: No scribe Attestation: No scribe JAY VIVAS PAC September 04, 2024 18:08 EDGARD GARCIA [employer] September 04, 2024 19:41
[2024-09-04] MEDS: ondansetron 4mg rapidly disintigrating tab PO STA (19:18)
[2024-09-04] MEDS: HYDROcodone/acetaminophen 10/325mg tab PO STA (19:18)
[2024-09-04] MEDS: normal saline 1000ml 1,000 ML IV STA (19:18)
[2024-09-04] MEDS ORDERED: DEXM20CP6 PO (20:10)
[2024-09-04] MEDS ORDERED: BUPR-94 PO (20:10)
[2024-09-04] MEDS ORDERED: magnesium Cl slow-release 64mg tablet PO PRN (21:55)
[2024-09-04] MEDS ORDERED: potassium Cl 20 mEq SR tablet PO PRN ×2 (21:55)
[2024-09-04] MEDS ORDERED: magnesium sulf-water 2g/50mL 50 ML IV PRN (21:55)
[2024-09-04] MEDS ORDERED: potassium Cl 40MEQ/1/2NS 520ml 520 ML IV PRN (21:55)
[2024-09-04] MEDS ORDERED: magnesium sulf-water 4G/100mL 100 ML IV PRN (21:55)
[2024-09-04] MEDS ORDERED: cefazolin 2gm/D5W 100mL 100 ML IV ONE (22:00)
[2024-09-04 22:22] LABS: HEMOGLOBIN A1C 5.2 % (4.5-6.2)
[2024-09-04] MEDS: normal saline 1000ml 1,000 ML IV SCH (22:22)
[2024-09-04] MEDS: CEFTAZIDIME 2 GM ONE (22:24)
[2024-09-04 22:27] LABS: THYROID STIMULATING HORMONE 2.11 ulU/ml (0.34-4.50)
[2024-09-04] MEDS: ketorolac trometh 15mg/ml vial 15 MG/ML ML IV ONE (22:27)
[2024-09-04] MEDS: ceFAZolin 2gm in dextrose, iso 50 ML IV ONE (22:33)
[2024-09-04] MEDS: metroNIDAZOLE-Flagyl 500mg/NS 100 ML IV STA (23:09)
[2024-09-05] VITALS (25 sets, daily range): BP systolic 101–137; BP diastolic 59–92; PULSE 63–105; RESP 14–24; TEMP 96.8–98.2; O2SAT 88–99
--- NOTE | 2024-09-05 01:33 | HISTORY AND PHYSICAL-Residence ---
History & Physical Providers to CC Resident Creating Document: MARY NOLASCO RES ~ History of Present Illness Primary Medical Doctor: JT Reason for Admit\Complaint: Abdominal pain History of Present Illness 33-year-old female history of PCOS, depression, anxiety, and ADHD who presents to the ED for abdominal pain x1 day. Yesterday afternoon patient started experiencing right lower quadrant abdominal pain and then few hours later had her period. Patient has had. Over the last year has a Mirena in place and believed the pain was due to her menstrual cycle. Pain continued to worsen if associated nausea and diffuse abdominal pain. 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 In the ED CT scan of the abdomen was done and showed a appendix with some stranding. Patient was started on IV fluids, antibiotics, pain control in the ED. Allergies: Coded Allergies: Latex, Natural Rubber (Verified Allergy, Intermediate, RED AND IRRITATED SKIN, 09/04/24) hydromorphone (Verified Allergy, Intermediate, 09/04/24) rash, itching sulfamethoxazole (Verified Allergy, Intermediate, HIVES, 09/04/24) trimethoprim (Verified Allergy, Intermediate, HIVES, 09/04/24) morphine (Verified Allergy, Unknown, 09/04/24) aspirin (Verified Adverse Reaction, Mild, VOMITING, 09/04/24) Home Medications Home Medications Active Ibuprofen 800 Mg Tablet 1 Tab PO Q8H 10 Days Reported Dexmethylphenidate HCl ER (Dexmethylphenidate HCl) 20 Mg Cpbp.50.50 1 Cap PO DAILY 30 Days Wellbutrin Xl (Bupropion Hcl) 150 Mg Tab.sr.24h 1 Tab PO DAILY 30 Days Paroxetine HCl 40 Mg Tablet 1 Tab PO DAILY Past Medical History Past Medical History PCOS Depression Anxiety Past Surgical History Surgical History Comment Cholecystectomy Past Social History Social History Comment Denies any alcohol, tobacco abuse, recreational drug use Alcohol Use: None Drug Use: None Lives In: Home Occupation: employed ROS Constitutional: Denies: chills, fever, weakness Eyes: Denies: pain, blurred vision ENT: Denies: ear pain, nose pain, throat pain, mouth pain Respiratory: Denies: cough, shortness of breath Cardiovascular: Denies: chest pain, palpitations Gastrointestinal: Denies: abdominal pain, nausea, vomiting Genitourinary: Denies: burning, dysuria Neurological: Denies: headache, dizziness Musculoskeletal: Denies: pain, swelling Integumentary: Denies: rash, lesions Allergic/Immunologic: Denies: hives, itching Hematologic/Lymphatic: Denies: no symptoms reported Psychiatric: Denies: depression, anxiety Exam Vitals: Vital Signs Date Time Temp Pulse Resp B/P (MAP) Pulse Ox O2 Delivery O2 Flow Rate FiO2 09/04/24 23:23 16 09/04/24 21:12 86 121/90 (100) 98 0 09/04/24 12:34 98.6 General: General: Awake and Alert, no acute distress. HEENT: Conjunctiva pink, Sclera clear, Mucus Membranes moist. Neck: Supple without masses and tenderness. Resp: Unlabored. Lungs clear to auscultation bilaterally. Heart: Regular Rate and rhythm, normal S1 and S2 without murmur, rub or gallop. Abdomen: After his and positive, with pain on palpation abdomen Extremities: No cyanosis,clubbing or edema. Skin: Warm and Dry. Diagnostic Data Last Recorded Lab Results: 09/04/24 1303 09/04/24 1308 Advance Care Planning Advanced Care plannin - 30 Minutes Additional Plan Acute appendicitis Surgery has been consulted CT abdomen shows a dilated appendix with stranding. Pain control with Toradol and Zofran for antiemetics Started patient on empiric cefazolin and metronidazole The patient is hemodynamically stable at this time Code Status: DVT prophylaxis: Analgesia/sedation: Lines/tubes: GI prophylaxis: Nutrition: PT: Prognosis: Disposition: Mary Nolasco MD Internal Medicine Resident PGY-3 Nocturnal general medical practitioner attestation of resident HP. Attestation of HP only, care immediately directed to hospitalist team - Abx - Pain control - Gen surg eval - Jake for DVT proph Patient seen through remote audiovisual assessment through HIPAA compliant setup. All labs, flowsheets, and images reviewed. Date of Service: September 05, 2024 Billing Provider: JESSE KIRKLAND Jr., TOBIN, RES September 05, 2024 01:33 JESSE KIRKLAND Jr., DO September 05, 2024 04:19
[2024-09-05] MEDS: ketorolac trometh 15mg/ml vial 15 MG/ML ML IV PRN ×2 (04:32→15:02)
[2024-09-05 06:51] LABS: BASOPHILS # (AUTO) 0.1 X10'3 (0-0.2); BASOPHILS % (AUTO) 1.2 % (0-1); EOSINOPHILS # (AUTO) 0.2 X10'3 (0-0.9); HEMATOCRIT 37.1 % (35.0-45.0); HEMOGLOBIN 12.9 g/dl (12.0-16.0); LYMPHOCYTES # (AUTO) 2.6 X10'3 (1.1-4.8); LYMPHOCYTES % (AUTO) 38.3 % (21-51); MEAN CORPUSCULAR HGB CONC 34.8 g/dL (33.0-36.5); MEAN PLATELET VOLUME 7.6 FL (7.4-10.4); MONOCYTES # (AUTO) 0.5 X10'3 (0-0.9); MONOCYTES % (AUTO) 7.2 % (2-12); NEUTROPHILS # (AUTO) 3.4 X10'3 (1.8-7.7); NEUTROPHILS % (AUTO) 50.3 % (42-75); PLATELET COUNT 267 X10'3 (140-440); RED BLOOD COUNT 4.04 X10'6 (4.20-5.60); RED CELL DISTRIBUTION WIDTH 13.2 % (11.5-14.5); WHITE BLOOD COUNT 6.7 X10'3 (4.5-11.0)
[2024-09-05 07:03] LABS: APTT 28 SECONDS (22-32); PROTHROMBIN TIME 10.7 SECONDS (9.0-12.0)
[2024-09-05 07:08] LABS: ALANINE AMINOTRANSFERASE 63 U/L (12-78); ALBUMIN 3.3 G/DL (3.4-5.0); ALKALINE PHOSPHATASE 87 IU/L (46-116); ANION GAP 8 (8-16); ASPARTATE AMINO TRANSFERASE 63 U/L (10-37); BILIRUBIN,TOTAL 0.4 MG/DL (0.1-1.0); BLOOD UREA NITROGEN 11 MG/DL (7-18); BUN/CREATININE RATIO 14.7 (10.0-20.0); CALCIUM 8.3 MG/DL (8.5-10.1); CHLORIDE 106 MMOL/L (99-107); CHOL/HDL RATIO 4.4 (0.00-4.99); CHOLESTEROL 162 MG/DL (0-200); CREATININE 0.75 MG/DL (0.40-0.90); GLUCOSE 104 MG/DL (70-104); HDL CHOLESTEROL 37 MG/DL (35-60); LDL CHOLESTEROL 98 MG/DL (50-100); PHOSPHORUS 3.1 MG/DL (2.3-4.5); POTASSIUM 3.5 MMOL/L (3.5-5.1); SODIUM 141 MMOL/L (135-145); TOTAL CARBON DIOXIDE 26.9 MMOL/L (24-32); TOTAL PROTEIN 6.6 G/DL (6.4-8.2); TRIGLYCERIDES 233 MG/DL (20-135); eCRCL 77 ML/MIN; eGFR 89 ML/MIN
[2024-09-05] MEDS: K and/or MAG REPLACEMENT MC SCH (08:00)
[2024-09-05] MEDS: heparin, porcine 5000 units/ml vial SQ SCH (08:00)
[2024-09-05] MEDS: ringers solution, lacted 1,000 ML IV SCH (09:00)
[2024-09-05] MEDS ORDERED: meperidine/PF 25mg/ml syringe IV PRN ×2 (09:00)
[2024-09-05] MEDS ORDERED: labetalol 20mg/4ml (5mg/ml) syringe IV PRN (09:00)
[2024-09-05] MEDS ORDERED: hydrALAZINE 20mg/ml inj. IV PRN (09:00)
[2024-09-05] MEDS ORDERED: ondansetron/PF 4mg/2ml inj IV PRN ×2 (09:00→11:10)
[2024-09-05] MEDS ORDERED: fentaNYL/PF 50MCG/1 ML 2ML syringe IV PRN ×2 (09:00)
[2024-09-05] MEDS ORDERED: rocuronium 10mg/ml inj IV ONE (09:03)
[2024-09-05] MEDS ORDERED: propofol inj 20 ML IV ONE (09:03)
[2024-09-05] MEDS ORDERED: fentaNYL/PF 50MCG/1 ML 2ML syringe ONE (09:04)
[2024-09-05] MEDS ORDERED: BUPIVAcaine 2.5mg/ml inj 50ml vial (contains preservative) ONE (09:04)
[2024-09-05] MEDS ORDERED: midazolam 1 mg/ML 2ml injection ONE (09:04)
[2024-09-05] MEDS: ceFOXitin sod/dextrose 2g/50ml 50 ML IV ONE (09:19)
--- NOTE | 2024-09-05 09:49 | PROGRESS NOTE ---
Progress Note ID Providers to CC ~ Progress Note Progress Note: PT SEEN AND EXAMINED-NEED ROBO APPY-POSSIBLE OPEN-DISCUSSED PROCEDURE INCLUDING RISKS/BENEFITS/ALTERNATIVES RAHAT RAMAN MD September 05, 2024 09:49
[2024-09-05] MEDS ORDERED: acetaminophen 1,000mg/100ml IV 100 ML IV ONE (10:34)
[2024-09-05] MEDS ORDERED: dexamethasone sod phosphate 4mg/ml inj. ONE (10:34)
[2024-09-05] MEDS ORDERED: ondansetron/PF 4mg/2ml inj ONE (10:36)
[2024-09-05] MEDS: BUPIVAcaine/PF 2.5 mg/ml (0.25%) 30ml vial IJ ONE (10:44)
--- NOTE | 2024-09-05 10:45 | PROGRESS NOTE ---
Daily Progress Note Providers to CC ~ Antibiotic Timeout Antibiotic Ordered?: Yes Subjective No acute events overnight. Patient examined at bedside. No new complaints, not in acute distress. Patient denies chest pain, sob, palpitations, n/v/d. Vss, labs unremarkable. CT abd/pelvis shows acute appendicitis. Consulted surgeon Dr. Conley, patient underwent laparoscopic appendectomy with findings of mild appendicitis. Reports mild abdominal pain post-op. Recovering well, ambulating. Objective Vital Signs Date Time Temp Pulse Resp B/P (MAP) Pulse Ox O2 Delivery O2 Flow Rate FiO2 09/05/24 06:00 98.1 63 18 121/81 (94) 98 Room Air 09/04/24 21:12 0 Result Diagram: 09/05/2462809/05/24628 Physical Exam General: Generalized weakness, A&Ox 3, NAD HEENT: Normocephalic, PERRLA Neck: Supple, trachea midline, no JVD Chest: Clear to auscultation bilaterally Cardiovascular: RRR, S1&S2 GI: Tender RLQ abdomen Extremities: No cyanosis/clubbing/or edema BIN PILER: CN II-XII intact, no focal deficits Musculoskeletal: No paraspinal muscle tenderness, no muscle spasm Skin: Laparoscopic incisions in left lower abdomen, medial abdomen Coagulation Studies Laboratory Tests Test 09/05/24 06:29 Prothrombin Time 10.7 SECONDS (9.0-12.0) INR International Normalized Ratio 1.0 INR Activated Partial Thromboplast Time 28 SECONDS (22-32) Coagulation Comments Problem\Assessment\Plan # Acute appendicitis -CT abd/pelvis shows dilated without rupture; consulted Dr. Conley; patient underwent laparoscopic appendectomy today -continue abx, supportive care DVT/VTE Prophylaxis: heparin Code Status: Full Code Date of Service: September 05, 2024 Billing Provider: SHARON SNIDER Common Visit Codes: [id number] INP/OBS CARE(HIGH) SHARON SNIDER September 05, 2024 10:45
[2024-09-05] MEDS ORDERED: sugammadex 200mg/2ml injection IV ONE (10:55)
--- NOTE | 2024-09-05 11:08 | OPERATIVE REPORT ---
Operative Report Providers to CC ~ Date of Procedure: September 05, 2024 Pre-Operative Diagnosis: Acute Appendicitis Post-Operative Diagnosis SAME as PRE-Op Procedure Performed [facility] Surgeon: LAMINE TATE Anesthesiologist: Andrea Mckenzie Type of Anesthesia: General Findings: APPENDICITIS Estimated Blood Loss: MIN Specimen Removed: RAHAT HELMS MD September 05, 2024 11:08
[2024-09-05] MEDS ORDERED: naloxone 0.4 mg/ml inj IV PRN (11:10)
[2024-09-05] MEDS: albuterol 2.5 MG/3 ML nebule NEB ONE (11:40)
[2024-09-05] MEDS: acetaminophen 1,000mg/100ml IV 100 ML IV PRN (11:44)
[2024-09-05] MEDS: ketorolac trometh 30MG/ML vial 30 MG/ML VIAL IV ONE (11:44)
[2024-09-05] MEDS ORDERED: meperidine/PF 100mg/ml syringe IV PRN ×3 (12:42→12:55)
[2024-09-05] MEDS: meperidine/PF 100mg/ml syringe IV PRN (12:56)
--- NOTE | 2024-09-05 15:47 | OPERATIVE REPORT ---
DATE OF SURGERY: 09/05/2024 DICTATING PHYSICIAN: Konstantin Conley MD PREOPERATIVE DIAGNOSIS: Appendicitis. POSTOPERATIVE DIAGNOSIS: Appendicitis. PROCEDURE PERFORMED: Robotic appendectomy. SURGEON: Konstantin Conley MD SERVICE DELIVERY MANAGEMENT CONSULTANT: None. ANESTHESIA: General/Dr. Mckenzie DRAINS: None. INDICATIONS FOR OPERATION: A 33-year-old female with history of right upper quadrant abdominal pain and abnormal CAT scan, taken to surgery for robotic appendectomy. INTRAOPERATIVE FINDINGS: Mild appendicitis. DESCRIPTION OF PROCEDURE: The patient was placed supine on the operating table. After induction of general anesthesia and placement of endotracheal tube, the abdomen was prepped and draped. A suprapubic incision was then made and a #12 port placed using open technique. Pneumoperitoneum was begun by insufflation of CO2. Additional ports were placed in the left lower quadrant. Robot was brought to the field. Camera port was docked. Camera was placed, camera targeted. Additional ports were then docked and instruments placed. Abdomen was then explored. The appendix was then visualized in the right lower quadrant and found to be inflamed. The appendiceal cecal junction was identified, isolated and ligated with Endo-TWAN stapler and divided as was appendiceal mesentery. Hemostasis was obtained. Robotic instruments were removed with hemostasis found to be adequate. Robotic undocked from the field. Appendix was placed in Endobag using a laparoscope. Abdomen was copiously irrigated with large amount of antibiotic-containing solution. Pneumoperitoneum was evacuated. Hemostasis was found to be adequate. Wounds were closed in layers. Skin was closed with subcuticular stitch. Dressings applied. Appendix was removed with Endobag at the time of port removal. Konstantin Conley MD TID: [id number] RECEIPT: [id number] KB/VUN/CELINA
[2024-09-05] MEDS: HYDROcodone/acetaminophen 5mg/325mg tablet PO PRN (15:57)
--- NOTE | 2024-09-05 18:09 | CONSULTATION ---
DATE OF CONSULTATION: 09/05/2024 DICTATING PHYSICIAN: Konstantin Conley MD REASON FOR CONSULTATION: Evaluation of abdominal pain. HISTORY OF PRESENT ILLNESS: The patient is a 33-year-old female with a history of PCOS, depression, and anxiety. She complains of abdominal pain. CAT scan revealed dilated appendix. Surgical evaluation now requested. On further questioning, the patient complains of right upper quadrant pain for the past 2 days, persistent nausea. No diarrhea. No blood per rectum. PAST MEDICAL HISTORY: Significant for PCOS, depression, anxiety. PAST SURGICAL HISTORY: Previous cholecystectomy. HOME MEDICATIONS: Include fexofenadine, Wellbutrin, paroxetine. ALLERGIES: MULTIPLE INCLUDING LATEX, DILAUDID, BACTRIM, TRIMETHOPRIM, MORPHINE, ASPIRIN. SOCIAL HISTORY: No tobacco or alcohol use. REVIEW OF SYSTEMS: See H and P. PHYSICAL EXAMINATION: GENERAL: She is a well-nourished female, in no distress. VITAL SIGNS: Unremarkable. HEART: Regular rate and rhythm. LUNGS: Clear to auscultation. ABDOMEN: Shows mild tenderness right upper quadrant. EXTREMITIES: Unremarkable. NEUROLOGIC: Nonfocal. LABORATORY DATA: WBC is 6, hematocrit of 37, platelet count 267. Chemistries unremarkable. IMAGING STUDIES: CAT scan revealed dilated appendix. IMPRESSION: * Probable early appendicitis. * Polycystic ovarian syndrome. * Depression. * Anxiety. PLAN: * Admit. * IV antibiotics. * Robotic appendectomy. Konstantin Conley MD TID: [id number] RECEIPT: [id number] KB/VUN
[2024-09-05] MEDS: BUPROPION HCL 150MG XL 24 HR 150 MG TAB PO ONE (19:00)
[2024-09-05] MEDS: methylphenidate 5mg tablet PO SCH (19:10)
[2024-09-05] MEDS: PARoxetine 20mg tablet PO ONE (21:20)
[2024-09-06] VITALS (8 sets, daily range): BP systolic 110–128; BP diastolic 63–74; PULSE 75–93; RESP 16–22; TEMP 96.9–98.1; O2SAT 94–98
[2024-09-06] MEDS: docusate sod 100mg capsule PO ONE (04:09)
[2024-09-06 06:58] LABS: BASOPHILS # (AUTO) 0.1 X10'3 (0-0.2); BASOPHILS % (AUTO) 0.4 % (0-1); EOSINOPHILS % (AUTO) 0 % (0-6); HEMATOCRIT 38.7 % (35.0-45.0); HEMOGLOBIN 13.2 g/dl (12.0-16.0); LYMPHOCYTES # (AUTO) 1.9 X10'3 (1.1-4.8); LYMPHOCYTES % (AUTO) 10.1 % (21-51); MEAN CORPUSCULAR HEMOGLOBIN 31.8 PG (27.0-31.0); MEAN CORPUSCULAR HGB CONC 34.2 g/dL (33.0-36.5); MEAN CORPUSCULAR VOLUME 92.8 FL (78-98); MEAN PLATELET VOLUME 7.5 FL (7.4-10.4); MONOCYTES # (AUTO) 0.8 X10'3 (0-0.9); MONOCYTES % (AUTO) 4.2 % (2-12); NEUTROPHILS # (AUTO) 15.6 X10'3 (1.8-7.7); NEUTROPHILS % (AUTO) 85.3 % (42-75); PLATELET COUNT 322 X10'3 (140-440); RED BLOOD COUNT 4.17 X10'6 (4.20-5.60); RED CELL DISTRIBUTION WIDTH 13.2 % (11.5-14.5); WHITE BLOOD COUNT 18.3 X10'3 (4.5-11.0)
[2024-09-06 07:08] LABS: APTT 26 SECONDS (22-32); INR 1.1 INR
[2024-09-06 07:13] LABS: ALANINE AMINOTRANSFERASE 152 U/L (12-78); ALBUMIN 3.6 G/DL (3.4-5.0); ALKALINE PHOSPHATASE 101 IU/L (46-116); ANION GAP 6 (8-16); ASPARTATE AMINO TRANSFERASE 90 U/L (10-37); BILIRUBIN,TOTAL 0.5 MG/DL (0.1-1.0); BLOOD UREA NITROGEN 6 MG/DL (7-18); BUN/CREATININE RATIO 6.9 (10.0-20.0); CALCIUM 8.7 MG/DL (8.5-10.1); CHLORIDE 106 MMOL/L (99-107); CREATININE 0.87 MG/DL (0.40-0.90); GLUCOSE 123 MG/DL (70-104); MAGNESIUM 2.1 MG/DL (1.5-2.4); PHOSPHORUS 2.8 MG/DL (2.3-4.5); POTASSIUM 4.5 MMOL/L (3.5-5.1); SODIUM 140 MMOL/L (135-145); TOTAL PROTEIN 7.2 G/DL (6.4-8.2); eCRCL 66 ML/MIN; eGFR 75 ML/MIN
[2024-09-06] MEDS ORDERED: PARoxetine 20mg tablet PO SCH (08:00)
[2024-09-06] MEDS: CefTRIAXone/D5W-Rocephin 1gm 50 ML IV ONE (09:14)
[2024-09-06] MEDS: BUPROPION HCL 150MG XL 24 HR 150 MG TAB PO SCH (09:20)
[2024-09-06] MEDS: metroNIDAZOLE-Flagyl 500mg/NS 100 ML IV STA (09:21)
[2024-09-06] MEDS: diphenhydrAMINE 50 mg/ml inj IV PRN (13:52)
--- NOTE | 2024-09-06 14:48 | PROGRESS NOTE ---
Daily Progress Note Providers to CC ~ Antibiotic Timeout Antibiotic Ordered?: Yes Subjective No acute events overnight. Patient examined at bedside. No new complaints, not in acute distress. Patient denies chest pain, sob, palpitations, abdominal pain, n/v/d. Vss, labs unremarkable. CT abd/pelvis showed acute appendicitis and she is s/p laparoscopic appendectomy on 09/05/24 without complication. Vss, labs notable for significant uptrend of white count with left shift. Objective Vital Signs Date Time Temp Pulse Resp B/P (MAP) Pulse Ox O2 Delivery O2 Flow Rate FiO2 09/06/24 10:00 98.1 81 16 128/72 (90) 96 Room Air 09/05/24 13:00 4.0 09/05/24 11:41 99 Result Diagram: 09/06/24 0641 09/06/24 0641 Physical Exam General: Generalized weakness, A&Ox 3, NAD HEENT: Normocephalic, PERRLA Neck: Supple, trachea midline, no JVD Chest: Clear to auscultation bilaterally Cardiovascular: RRR, S1&S2 GI: Tender RLQ abdomen Extremities: No cyanosis/clubbing/or edema BLOGS MANAGER: CN II-XII intact, no focal deficits Musculoskeletal: No paraspinal muscle tenderness, no muscle spasm Skin: Laparoscopic incisions in left lower abdomen, medial abdomen Coagulation Studies Laboratory Tests Test 09/06/24 06:41 Prothrombin Time 11.0 SECONDS (9.0-12.0) INR International Normalized Ratio 1.1 INR Activated Partial Thromboplast Time 26 SECONDS (22-32) Coagulation Comments Problem\Assessment\Plan # Acute appendicitis, uncomplicated -CT abd/pelvis shows dilated without rupture; consulted Dr. Conley; patient underwent laparoscopic appendectomy today -continue abx, supportive care -09/06: significant uptrend of white count with left shift DVT/VTE Prophylaxis: heparin Code Status: Full Code Date of Service: September 06, 2024 Billing Provider: SHARON SNIDER Common Visit Codes: [id number] INP/OBS CARE(HIGH) SHARON SNIDER September 06, 2024 14:48
[2024-09-06 15:20] LABS: C-REACTIVE PROTEIN 1.03 MG/DL (0.0-0.5)
[2024-09-06] MEDS: metroNIDAZOLE-Flagyl 500mg/NS 100 ML IV SCH (15:43)
[2024-09-06] MEDS ORDERED: ceFAZolin/D5W- 1GM premix 50 ML IV SCH (16:00)
--- NOTE | 2024-09-06 19:00 | PROGRESS NOTE ---
Progress Note ID Providers to CC ~ Progress Note Progress Note: doing well/home in am RAHAT RAMAN MD September 06, 2024 19:00
[2024-09-06] MEDS: PARoxetine 20mg tablet PO SCH (20:19)
[2024-09-07 05:58] LABS: BASOPHILS # (AUTO) 0.1 X10'3 (0-0.2); BASOPHILS % (AUTO) 1.3 % (0-1); EOSINOPHILS # (AUTO) 0.3 X10'3 (0-0.9); EOSINOPHILS % (AUTO) 2.8 % (0-6); HEMATOCRIT 35.8 % (35.0-45.0); HEMOGLOBIN 12.1 g/dl (12.0-16.0); LYMPHOCYTES # (AUTO) 3.7 X10'3 (1.1-4.8); LYMPHOCYTES % (AUTO) 36.1 % (21-51); MEAN CORPUSCULAR HEMOGLOBIN 31.7 PG (27.0-31.0); MEAN CORPUSCULAR HGB CONC 33.9 g/dL (33.0-36.5); MEAN CORPUSCULAR VOLUME 93.5 FL (78-98); MEAN PLATELET VOLUME 8.3 FL (7.4-10.4); MONOCYTES # (AUTO) 0.5 X10'3 (0-0.9); MONOCYTES % (AUTO) 4.6 % (2-12); NEUTROPHILS # (AUTO) 5.6 X10'3 (1.8-7.7); NEUTROPHILS % (AUTO) 55.2 % (42-75); PLATELET COUNT 287 X10'3 (140-440); RED BLOOD COUNT 3.83 X10'6 (4.20-5.60); RED CELL DISTRIBUTION WIDTH 13.1 % (11.5-14.5); WHITE BLOOD COUNT 10.1 X10'3 (4.5-11.0)
[2024-09-07 06:00] VITALS: BP 128/85; PULSE 76; RESP 16; TEMP 98.3; O2SAT 98
[2024-09-07 06:16] LABS: APTT 27 SECONDS (22-32); PROTHROMBIN TIME 10.5 SECONDS (9.0-12.0)
[2024-09-07 07:04] LABS: ALANINE AMINOTRANSFERASE 138 U/L (12-78); ALBUMIN 3.3 G/DL (3.4-5.0); ALBUMIN/GLOBULIN RATIO 1.1 (1.1-1.5); ALKALINE PHOSPHATASE 97 IU/L (46-116); ANION GAP 7 (8-16); ASPARTATE AMINO TRANSFERASE 62 U/L (10-37); BILIRUBIN,TOTAL 0.2 MG/DL (0.1-1.0); BLOOD UREA NITROGEN 6 MG/DL (7-18); BUN/CREATININE RATIO 8.5 (10.0-20.0); C-REACTIVE PROTEIN 0.62 MG/DL (0.0-0.5); CALCIUM 8.2 MG/DL (8.5-10.1); CHLORIDE 107 MMOL/L (99-107); CREATININE 0.71 MG/DL (0.40-0.90); GLUCOSE 104 MG/DL (70-104); MAGNESIUM 1.9 MG/DL (1.5-2.4); PHOSPHORUS 2.5 MG/DL (2.3-4.5); POTASSIUM 3.6 MMOL/L (3.5-5.1); SODIUM 142 MMOL/L (135-145); TOTAL CARBON DIOXIDE 28.2 MMOL/L (24-32); TOTAL PROTEIN 6.4 G/DL (6.4-8.2); eCRCL 81 ML/MIN; eGFR > 90 ML/MIN
[2024-09-07] MEDS ORDERED: AMOX-419 PO (07:16)
[2024-09-07 07:56] VITALS: RESP 18
[2024-09-07] MEDS: CefTRIAXone/D5W-Rocephin 1gm 50 ML IV SCH (07:58)
--- NOTE | 2024-09-07 10:07 | DISCHARGE SUMMARY ---
Discharge Summary Providers to CC ~ Discharge Summary Admission Diagnosis: Acute Appendicitis Hospital Course DATE OF ADMISSION: 09/04/24 DATE OF DISCHARGE: 09/06/24 Discharge Diagnosis\\Comment: Acute appendicitis Leukocytosis Operations\\Procedures: s/p laparoscopic appendectomy (09/05/24) Consultants: Surgeon Dr. Konstantin Conley Complications: None Condition on DC: Stable New Medications: Amoxicillin/Potassium Clav (Augmentin 500-125 Tablet) 500 Mg-125 Mg Tablet 1 TAB PO Q12H for 5 Days, #10 TAB Continued Medications: Bupropion Hcl (Wellbutrin Xl) 150 Mg Tab.sr.24h 1 TAB PO DAILY for 30 Days, #30 TAB 0 Refills Dexmethylphenidate HCl (Dexmethylphenidate HCl ER) 20 Mg Cpbp.50.50 1 CAP PO DAILY for 30 Days, #30 CAP 0 Refills Ibuprofen (Ibuprofen) 800 Mg Tablet 1 TAB PO Q8H for 10 Days, #30 TAB Paroxetine HCl (Paroxetine HCl) 40 Mg Tablet 1 TAB PO HS Discharge Summary: History of Present Illness From H&P: Nanci Santillan is a "33-year-old female history of PCOS, depression, anxiety, and ADHD who presents to the ED for abdominal pain x1 day. Yesterday afternoon patient started experiencing right lower quadrant abdominal pain and then few hours later had her period. Patient has had. Over the last year has a Mirena in place and believed the pain was due to her menstrual cycle. Pain continued to worsen if associated nausea and diffuse abdominal pain. 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 In the ED CT scan of the abdomen was done and showed a appendix with some stranding. Patient was started on IV fluids, antibiotics, pain control in the ED." Hospital Course Diagnostic findings were notable for CT abd/pelvis indicating dilated appendix without rupture. Pertinent negative findings were normal lactic acid, negative procal, afebrile. Patient was started on empirical antibiotics, intravenous fluids, and supportive care. Case was consulted with surgeon Dr. Conely and patient underwent laparoscopic appendectomy without complication. Patient developed profound leukocytosis which normalized on a following day. Patient did not experience further complications throughout the entire hospital stay and made a good recovery. Patient was seen and examined on the day of discharge. On day of discharge, vss and labs unremarkable. Patient ambulates independently. All labs, diagnostic workups, discharge plan discussed with patient in details during visit before discharge. All questions and concerns answered to the best of my professional knowledge. Patient is to be discharged to home to self and to follow-up with PCP and Dr. Conley within 2 weeks. Physical Exam General: A&Ox 3, NAD HEENT: Normocephalic, PERRLA Neck: Supple, trachea midline, no JVD Chest: Clear to auscultation bilaterally Cardiovascular: RRR, S1&S2 GI: Soft and nontender Extremities: No cyanosis/clubbing/or edema SALES MARKETING: CN II-XII intact, no focal deficits Musculoskeletal: No paraspinal muscle tenderness, no muscle spasm Skin: Warm and intact *Problems/Diagnosis: (1) Acute appendicitis Status: Acute Total Time Spent on D/C: > 30 Minutes Date of Service: September 07, 2024 Billing Provider: SHARON SNIDER Common Visit Codes: [id number] DISCH DAY >30min SHARON SNIDER September 07, 2024 10:06
--- NOTE | 2024-09-08 14:55 | PATHOLOGY REPORT ---
[facility] [address] [place] [address] SURGICAL PATHOLOGY REPORT CaseNumber: [id number] Surgeon:Konstantin Conley D.O. CLINICAL INFORMATION CLINICAL INFORMATION: Abdominal pain. Acute appendicitis. DIAGNOSIS DIAGNOSIS: APPENDIX, ROBOTIC-ASSISTED LAPAROSCOPIC APPENDEC - ACUTE APPENDICITIS - NO DYSPLASIA OR MALIGNANCY MICROSCOPIC DESCRIPTION MICROSCOPIC DESCRIPTION: Reviewed is a single stained slide showing sections of appendiceal wall. Th e appendiceal lumen is minimally dilated. Within the appendiceal wall there are areas associated wit h mildly increased numbers of neutrophils and lymphocytic cells. There are no dysplastic or neoplast ic features. GROSS DESCRIPTION GROSS DESCRIPTION: Received in a container of formalin labeled with the patient's name, number, and "appendix" is a uniform caliber vermiform appendix which measures 7.5 cm long by 0.8 cm in diameter. The serosa is somewhat roughened and navarrete. No fibropurulent exudate is identified. There is approxim ately 2.5 cm of attached periappendiceal fat. Sectioning reveals a dilated lumen containing purulent material but no fecalith. Hydrotechnical Specialist sections including the proximal, mid, and distal portion of the appendix are submitted as A1. The time at which the specimen was removed was 1053. The time at wh ich the specimen was placed in formalin was 1056. Electronically signed by: Moshe Jefferson M.D. 09/08/2024 2:21:00 PM
== END 2024-09-07 09:30 | disposition home or self-care (01) | DRG 399 ==
LOC: ER 12:09 → ED HOLD 21:56 → ORTHO 4S 23:55 → SUR 3N 09-06 14:36
PROVIDERS: ADMIT Internal Medicine Critical Care Medicine; ATTEND Nurse Practitioner Family
PROC: BW211ZZ Computerized Tomography (CT Scan) of Abdomen and Pelvis using Low Osmolar Contrast (ICD-10-PCS; 2024-09-04)
PROC: 8E0W4CZ Robotic Assisted Procedure of Trunk Region, Percutaneous Endoscopic Approach (ICD-10-PCS; 2024-09-05)
PROC: 0DTJ4ZZ Resection of Appendix, Percutaneous Endoscopic Approach (ICD-10-PCS; principal; 2024-09-05 09:49)
DX: K35.30 Acute appendicitis with localized peritonitis, without perforation or gangrene (principal); E28.2 Polycystic ovarian syndrome; F32.A Depression, unspecified; F41.9 Anxiety disorder, unspecified; J45.909 Unspecified asthma, uncomplicated; F90.9 Attention-deficit hyperactivity disorder, unspecified type; G43.909 Migraine, unspecified, not intractable, without status migrainosus; G47.30 Sleep apnea, unspecified; Z88.5 Allergy status to narcotic agent; Z88.2 Allergy status to sulfonamides; Z88.8 Allergy status to other drugs, medicaments and biological substances; Z91.040 Latex allergy status
CPT/HCPCS: 96361; 96365; 96375; 99285; Z7506; Z7508; 36415; 74177; 76856; 80053; 80061; 81001; 81025; 83036; 83605; 83690; 83735; 84100; 84145; 84443; 85025; 85610; 85730; 86140; 87081; 93976; 94640; 94760; A4215; A4314; A4615; A4618; G0378; J0131; J0690; J0696; J1100; J1200; J1644; J1885; J2175; J2250; J2405; J2704; J3010; J3490; J7030; J7120; Q9967

== ENCOUNTER 2024-09-19 18:01 | Emergency (ER) | payer BC ==
[~2024-09-19] VITALS: Ht 154.9 cm; Wt 77.3 kg
[~2024-09-19 18:01] MED LIST changes: +BUPR-94 PO; +DEXM20CP6 PO; -LIDO15SO9 PO; -METF-1203 PO; -PROP20TA6 PO
[2024-09-19 18:04] VITALS: TEMP 98
[2024-09-19] MEDS: epiNEPHrine 1 mg/ml inj IM STA (18:12)
[2024-09-19] MEDS: dexamethasone sod phosphate 10mg/ml inj IV STA (18:13)
[2024-09-19 18:20] VITALS: PULSE 143; RESP 18; O2SAT 100
[2024-09-19] MEDS: famotidine/PF 10 mg/ml inj IV ONE (18:20)
[2024-09-19] MEDS: epiNEPHrine 1 mg/ml inj ONE (18:22)
--- NOTE | 2024-09-19 18:26 | Physician Documentation ---
History of Present Illness ~ Chief Complaint: Allergic Reaction Stated Complaint: ALLERGIC REACTION Time Seen by MD: 18:09 Primary Medical Doctor: JT Mode of Arrival: EMS HPI Additional note by Nikos Gamez DO: I took over the care of this patient from previous physician. I reviewed any previous notes available, obtain my own history, review of systems and physical examination was performed by myself. This is a very pleasant 33-year-old female who presents for evaluation of tongue swelling and potential allergic reaction. She states that shortly prior to the onset of symptoms of tongue swelling or difficulty breathing she has been eating cornea site of fries. She also started new medication a recently for her ADHD. She also takes Wellbutrin and SSRI. Denies any nausea, vomiting, diarrhea, abdominal pain. No history of the anaphylaxis or anaphylactic reactions. History, review of systems, and physical examination are limited on initial presentation secondary to acuity of clinical condition. Per EMS, patient received 0.5 mg of adrenaline IM as well as 50 mg of Benadryl IV prior to arrival. Medication Reconciliation Allergies: Coded Allergies: Latex, Natural Rubber (Verified Allergy, Intermediate, RED AND IRRITATED SKIN, 09/19/24) hydromorphone (Verified Allergy, Intermediate, rash, itching, 09/19/24) TOLERATE NORCO 08/2024 sulfamethoxazole (Verified Allergy, Intermediate, HIVES, 09/19/24) trimethoprim (Verified Allergy, Intermediate, HIVES, 09/19/24) morphine (Verified Allergy, Unknown, 09/19/24) TOLERATE NORCO 08/2024 aspirin (Verified Adverse Reaction, Mild, VOMITING, 09/19/24) Scheduled Bupropion Hcl (Wellbutrin Xl), 1 TAB PO DAILY, (Reported) Dexmethylphenidate HCl (Dexmethylphenidate HCl ER), 1 CAP PO DAILY, (Reported) Ibuprofen (Ibuprofen), 1 TAB PO Q8H Paroxetine HCl (Paroxetine HCl), 1 TAB PO HS, (Reported) Discontinued Medications Amoxicillin/Potassium Clav (Augmentin 500-125 Tablet), 1 TAB PO Q12H Discontinued Reason: Auto Discontinued Past Medical History Past Medical History: Migraine, Asthma, Bronchitis, Pneumonia, Sleep Apnea, *GI/HEPATOBILIARY*, Cholelithiasis, UTI, Anxiety, Depression Past Surgical History: cholecystectomy, other Other Past Surgical History: [place] teeth removal Last Menstrual Period: August 22, 2024 Alcohol Use: None Drug Use: none Lives In: Home Occupation: employed Review of Systems ROS 10 point review of systems was performed and unless noted above in HPI is negative for acute process/complaint. Physical Exam Vital Signs: Temperature: 98.0, Source: Oral, Heart Rate: 143, Respiratory Rate: 18, BP: 137/84, Pulse Oximetry: 100, Weight: 77.270 Oxygen Flow Rate: 0 Physical Exam GENERAL: Awake, alert, oriented, GCS 15, no apparent distress, non-toxic appearing, answers questions, follows commands appropriately. Examined by my partner Dr. Ybarra immediately upon arrival to initiate care, care continued in room 2. HEENT: Atraumatic, normocephalic, macroglossia with the teeth kendrick noted, posterior oropharynx appears to be patent, no drooling, no hot potato voice, no floor of the mouth elevation, pupils equal, extraocular muscles intact, sclerae anicteric, mucus membranes moist, oropharynx is clear, no stridor. NECK: supple, full active range of motion, trachea midline, no thyromegaly, no lymphadenopathy, no JVD. CARDIOVASCULAR: Tachycardic and regular rate/rhythm, no murmurs/gallops/rubs, Pulses are 2+ in all extremities and symmetric. Capillary refill less than 2 seconds. PULMONARY: Nonlabored, good air movement ,no respiratory distress, speaking in full sentences, clear to auscultation bilaterally, no wheezing, no ronchi, no rales, no accessory muscle use. GASTROINTESTINAL: Soft, non-tender, non-distended, normal active bowel sounds, no organomegaly, no pulsatile masses, no CVA tenderness. NEUROLOGIC: Lucid with normal mental status. Normal facial symmetry. Moves all extremities symmetrically and with purpose. No truncal ataxia. Speech is fluid without evidence of dysarthria or aphasia, no focal deficits appreciated. MUSCULOSKELETAL: There is full range of motion of all extremities. There is no joint pain or joint swelling or joint erythema. There is no muscle pain or tenderness or swelling. EXTREMITIES: warm, well-perfused, no cyanosis, no clubbing, no edema, no acute deformities. Skin: warm, dry, no rashes or lesions, no jaundice, no petechiae orpurpura. No ecchymosis. PSYCHIATRIC: Understandably anxious affect, normal insight, normal concentration. Focused exam: [] Progress Progress Note [address] Ybarra I saw this patient in triage at the end of my shift just as Dr. Gamez was arriving. I evaluated her in the hallway and directed the patient into a resuscitation Rattan ordered epinephrine Decadron and famotidine. She is talking and has swollen tongue but at this point her airway is not imminently at risk of failure. Care passed over immediately to Dr. Gamez who is now at bedside. Results/Orders Results/Orders Orders - NIKOS GAMEZ DO Normal Saline 1000ml (Sodium Chloride 10 (09/19/24 22:15) Completed Orders - NIKOS GAMEZ DO Lorazepam Inj (Ativan Inj) (09/19/24 18:25) Diphenhydramine Inj (Benadryl Inj.) (09/19/24 20:35) Medications Received in ER Medications (Trade) Dose Ordered Sig/Tamara Route PRN Reason Start Time Stop Time Status Last Admin Dose Admin (Decadron 10mg/ ml inj) 10 mg ONCE STAT IV 09/19/24 18:03 09/19/24 18:04 DC 09/19/24 18:13 10 MG (Adrenalin inj) 0.5 mg ONCE STAT IM 09/19/24 18:04 09/19/24 18:06 DC 09/19/24 18:12 0.5 MG (Pepcid IV inj) 20 mg ONCE ONCE IV 09/19/24 18:05 09/19/24 18:06 DC 09/19/24 18:20 20 MG (Ativan inj) 1 mg ONCE ONCE IV 09/19/24 18:25 09/19/24 18:26 DC 09/19/24 18:41 1 MG (Benadryl inj.) 50 mg ONCE ONCE IV 09/19/24 20:35 09/19/24 20:36 DC 09/19/24 21:15 50 MG Sodium Chloride 1,000 ml @ 1,000 mls/hr ONCE ONCE IV 09/19/24 22:15 09/19/24 23:14 09/19/24 22:22 1,000 MLS/HR Vital Signs 09/19/24 09/19/24 09/19/24 09/19/24 18:04 18:20 18:56 19:41 Temp 98.0 Pulse 139 143 142 133 Resp 22 18 25 19 B/P (MAP) 137/84 128/74 (92) 124/73 (90) Pulse Ox 100 100 99 100 O2 Delivery Room Air* O2 Flow Rate 0 0 0 0 FiO2 21 09/19/24 09/19/24 20:41 22:19 Pulse 127 131 Resp 17 16 B/P (MAP) 110/75 (87) 111/84 (93) Pulse Ox 100 97 O2 Flow Rate 0 0 Medical Decision Making Findings Facility Status: ED Holds, RME process The plan was discussed with the patient, who demonstrates clear understanding of the plan and is in agreement with the plan unless otherwise noted in the chart. All questions have been answered, all concerns were addressed unless otherwise documented. I was available throughout their ED stay for frequent reassessment and questions. Differential Diagnoses (considered and possible or likely): [Allergic reaction, anaphylaxis, anaphylactic shock, angioedema including hereditary angioedema, MELA inhibitor induced angioedema] ??Differential Diagnoses (considered and unlikely, not requiring evaluation currently): [See above] MDM Data Please see [facility] for the following: Independent Historians and external Records Review. Historian: [Patient] Independent Historians: ?[EMS] Medication Management: [Reviewed medication list] Social History and determinants: [Reviewed] Please see the body of the note for the following: Any independent interpretations of ECG, imaging studies. All vitals signs/haemodynamics, ordered tests were independently reviewed and interpreted by myself. Nursing triage complaint and vitals reviewed, additional nursing notes were reviewed as available and I agree unless otherwise noted or documented in contradiction in the chart Vital Signs: Independently reviewed Labs: Independently interpreted Imaging: Independently interpreted Old Medical Records: Independently reviewed, see HPI for relevant summary and information Pulse Oximetry: [] interpreted as [normal on room air] by me [Rental [employer] Driver: [Regular Rate, Regular rhythm, no ectopy, NSR] reviewed and interpreted by me] Additionally notably showing: [Hemodynamically stable] Tests considered but not ordered include: [Hematologic workup and imaging has been considered but does not appear to be necessary given clinical nature of diagnosis] Social Determinants of Health Impact: Patient was evaluated in [facility] [place] to healthcare due to below par ratio of patient to medical providers. [] Comorbid Conditions Impacting Present Evaluation and Care/Treatment: [None known] Management Discussions with other Healthcare Providers: [None] Treatment and Disposition Medication Management (Given or considered): []. See EMR for details Consideration for Hospitalization/Escalation/Deescalation of Care: Admission for observation has been considered, [however the patient is able to tolerate p.o., their symptoms are controlled, they are able to rely on oral medications, and their chief complaint/diagnosis can be managed on outpatient basis.] ?ED Course:?[The patient was protecting her airway at all times. Multiple reassessments were made. Eventually the attempted has subsided. Tachycardia had resolved. No evidence of biphasic reaction.] ?Shared decision making:?[Patient is hemodynamically stable for discharge home with follow with their primary care provider. [ ] Specific and cautious return precautions provided and discussed with full understanding. Any incidental findings were also discussed and follow up recommendations given. [] All q uestions answered. Patient/family were able to verbalize back return precautions. Patient/family agree to plan. Copies of imaging and laboratory studies were provided.] Code status:?FULL Please see the full Electronic Medical Record for full details of nursing documentation, medications list, other records of complete past medical history and conditions, vital signs, laboratory studies, and any radiologic study interpretations by radiologists. Portions of this note were completed using Encision dictation software and as a result there may exist minor errors in spelling. I have reviewed elements of past family and social history and agree as included in note. Departure Disposition: 01 HOME / SELF CARE / HOMELESS Impression: Primary Impression: Anaphylaxis Condition: Improved Discharge Instructions: Anaphylactic Reaction, Adult, [id number] Referrals: NO PRIMARY CARE PROVIDER (PCP) Prescriptions Epinephrine (Epipen 2-Sonny) 0.3 Mg/0.3 Ml Auto.injct 1 SYR IM ONCE for 1 Day, #1 PKT 0 Refills Prov: NIKOS GAMEZ DO 09/19/24 Education Educated: Patient, Other Educated regarding: diagnosis, treatment, prognosis, need for follow up Critical Care Note Critical Care Note CRITICAL CARE TIME: [ 40] minutes Treatments/Evaluations: Close monitoring and treatment of unstable vital signs, cardiorespiratory, and neurologic status, while maintaining tight balance of fluid, respiratory, and cardiac interventions. This time includes discussing the case with the patient and the patients family. This time does not include all procedures stated elsewhere in this record. This time also includes reviewing old records, labs and radiological studies. This time includes examining and re- examining the patient. Additionally, this time also includes arranging care with admitting and consulting physicians. Signature Scribe Signature: No scribe Attestation: This note accurately reflects clinical decisions, work performed by myself, DO HALIE Rabago NICHOLAS R MD September 19, 2024 18:26 NIKOS GAMEZ DO September 19, 2024 18:42
[2024-09-19] MEDS: LORazepam 2 mg/ml vial IV ONE (18:41)
[2024-09-19] MEDS: diphenhydrAMINE 50 mg/ml inj IV ONE (21:15)
[2024-09-19] MEDS: normal saline 1000ml 1,000 ML IV ONE (22:22)
[2024-09-19] MEDS ORDERED: EPIN0.3P3 IM (23:13)
[2024-09-19 23:16] VITALS: BP 117/78; PULSE 110; RESP 16; O2SAT 98
== END 2024-09-19 23:27 | disposition home or self-care (01) ==
LOC: ER 18:01
DX: T78.2XXA Anaphylactic shock, unspecified, initial encounter (principal); F41.9 Anxiety disorder, unspecified; F32.A Depression, unspecified; J45.909 Unspecified asthma, uncomplicated; G47.30 Sleep apnea, unspecified; Z91.040 Latex allergy status; Z88.2 Allergy status to sulfonamides; Z88.5 Allergy status to narcotic agent; Z88.8 Allergy status to other drugs, medicaments and biological substances; Z90.49 Acquired absence of other specified parts of digestive tract; Z79.899 Other long term (current) drug therapy
CPT/HCPCS: 96361; 96372; 96374; 96375; 96376; 99291; J0171; J1100; J1200; J2060; J3490; J7030

== ENCOUNTER 2024-09-29 20:01 | Emergency (ER) | payer BC ==
[~2024-09-29] VITALS: Ht 152.4 cm; Wt 77.3 kg
[~2024-09-29 20:01] MED LIST changes: +EPIN0.3P3 IM
--- NOTE | 2024-09-29 21:41 | Physician Documentation ---
History of Present Illness General Chief Complaint: Post-operative complication Stated Complaint: POST OP COMPLICATIONS Time Seen by MD: 21:41 Primary Medical Doctor: JT History of Present Illness Initial Comments This 33-year-old female presents with concern for infection to her laparoscopic site due to the scab on the site falling off frequently and experiencing some drainage from this site when these scab falls off. Patient reports surgery was on the 01 of September. Patient reports no fevers or abdominal pain. Medication Reconciliation Allergies: Coded Allergies: Latex, Natural Rubber (Verified Allergy, Intermediate, RED AND IRRITATED SKIN, 09/19/24) hydromorphone (Verified Allergy, Intermediate, rash, itching, 09/19/24) TOLERATE NORCO 08/2024 sulfamethoxazole (Verified Allergy, Intermediate, HIVES, 09/19/24) trimethoprim (Verified Allergy, Intermediate, HIVES, 09/19/24) morphine (Verified Allergy, Unknown, 09/19/24) TOLERATE NORCO 08/2024 aspirin (Verified Adverse Reaction, Mild, VOMITING, 09/19/24) Scheduled Bupropion Hcl (Wellbutrin Xl), 1 TAB PO DAILY, (Reported) Cephalexin*Monohydrate* (Keflex*), 1 CAP PO QID Dexmethylphenidate HCl (Dexmethylphenidate HCl ER), 1 CAP PO DAILY, (Reported) Epinephrine (Epipen 2-Sonny), 1 SYR IM ONCE Ibuprofen (Ibuprofen), 1 TAB PO Q8H Paroxetine HCl (Paroxetine HCl), 1 TAB PO HS, (Reported) Past Medical History Past Medical History: Migraine, Asthma, Bronchitis, Pneumonia, Sleep Apnea, *GI/HEPATOBILIARY*, Cholelithiasis, UTI, Anxiety, Depression Past Surgical History: cholecystectomy, other Other Past Surgical History: [place] teeth removal Alcohol Use: None Drug Use: none Lives In: Home Occupation: employed Review of Systems ROS Poorly healing surgical wound as stated above in the HPI, otherwise all systems are reviewed and negative. Physical Exam Physical Exam Vital Signs: Temperature: 98.7, Source: Oral, Heart Rate: 115, Respiratory Rate: 18, BP: 134/92, Pulse Oximetry: 98, Weight: 77.270 Oxygen Flow Rate: 0 Physical Exam VITALS: Reviewed and as above. GENERAL: Alert, nontoxic appearing, no apparent distress. RESPIRATORY: No increased work of breathing, no respiratory distress, speaking in full clear sentences GI: Soft, nontender, no rebound, no guarding, bowel sounds present SKIN: Approximately 3.5 cm healing surgical laceration to the upper central abdomen without significant discharge or surrounding erythema and no fluctuance or induration. Progress Results/Orders Results/Orders Vital Signs 09/29/24 09/29/24 20:04 22:46 Temp 98.7 98.6 Pulse 115 109 Resp 18 18 B/P (MAP) 134/92 132/90 Pulse Ox 98 99 O2 Flow Rate 0 Microbiology Date/Time Source Procedure Growth Status 09/29/24 22:33 Print Internal Inquiry - Final Complete 09/29/24 22:15 Abdomen Wound Routine Culture - Preliminary Resulted Medical Decision Making Findings This 33-year-old female presented with concern for a poorly healing surgical wound to her upper abdomen, the wound does appear to be healing though delayed has surgery was proximally one month prior, physical exam significant for minimal erythema to the outer border of the wound without induration or fluctuance. It is reassuring patient reported no abdominal pain or fever. Due to the minimal purulence of the wound a culture was obtained and patient started on a course of p.o. antibiotics, patient is otherwise well-appearing with a benign physical exam and in his appropriate for outpatient follow up. Patient provided home care instructions and careful return to care precautions which he verbalized understanding of. Differential Diagnosis Cellulitis, abscess, wound dehiscence, peritonitis, sepsis, septicemia, bowel obstruction Departure Disposition: 01 HOME / SELF CARE / HOMELESS Impression: Primary Impression: Wound infection after surgery Condition: Improved Discharge Instructions: Sterile Tape Wound Care, Sutured Wound Care Additional Instructions: Keep the area clean dry and covered, you may use Steri-Strips to help support the area. Please use the antibiotics as prescribed. Please follow up with your primary care provider in the next few days. Please return to the emergency department for any new or worsening concerning symptoms. Referrals: NO PRIMARY CARE PROVIDER (PCP) Prescriptions Cephalexin*Monohydrate* (Keflex*) 500 Mg Capsule 1 CAP PO QID for 5 Days, #20 CAP Prov: TISH SULLIVAN SSIS SSRS DEVELOPER 09/30/24 Education Educated: Patient Educated regarding: diagnosis, treatment, prognosis, need for follow up Additional Comment Medical Screen Exam History: This 33-year-old female presents with concern for infection to her laparoscopic site due to the scab on the site falling off frequently and experiencing some drainage from this site. Patient reports no fevers. Exam: VITALS: Reviewed and as above. GENERAL: Alert, nontoxic appearing, no apparent distress. RESPIRATORY: No increased work of breathing, no respiratory distress, speaking in full clear sentences SKIN: Approximately 3 cm healing laceration to the upper central abdomen without surrounding erythema and no obvious discharge MSE performed in triage and patient returned to ED lobby by nursing staff The note accurately reflects work and decisions made by me.TALYA Maier 09/29/24 21:41 Signature Scribe Signature: No scribe Attestation: The note accurately reflects work and decisions made by me.TALYA Maier 09/30/24 00:21 MERCY CALIX Sep 29, 2024 21:41 TISH SULLIVAN NP Sep 30, 2024 18:26
[2024-09-29] MEDS: cephalexin 250mg capsule PO ONE (22:20)
[2024-09-29] MEDS ORDERED: CEPH-585 PO (22:21)
[2024-09-29 22:46] VITALS: BP 132/90; PULSE 109; RESP 18; TEMP 98.6; O2SAT 99
[2024-09-30] MEDS ORDERED: CEPH-585 PO (18:25)
== END 2024-09-29 22:47 | disposition home or self-care (01) ==
LOC: ER 20:02
DX: T81.41XA Infection following a procedure, superficial incisional surgical site, initial encounter (principal); G47.30 Sleep apnea, unspecified; F32.A Depression, unspecified; F41.9 Anxiety disorder, unspecified; J45.909 Unspecified asthma, uncomplicated; Z88.1 Allergy status to other antibiotic agents; Z88.2 Allergy status to sulfonamides; Z88.5 Allergy status to narcotic agent; Z91.040 Latex allergy status; Z88.6 Allergy status to analgesic agent; Z88.8 Allergy status to other drugs, medicaments and biological substances; Z90.49 Acquired absence of other specified parts of digestive tract; Y92.89 Other specified places as the place of occurrence of the external cause
CPT/HCPCS: 87070; 99283

== ENCOUNTER 2024-10-20 10:47 | Emergency (ER) | payer BC ==
[~2024-10-20] VITALS: Ht 152.4 cm; Wt 80.7 kg
[~2024-10-20 10:47] MED LIST changes: +CEPH-585 PO
--- NOTE | 2024-10-20 12:16 | Physician Documentation ---
History of Present Illness ~ Chief Complaint: Post-operative complication Stated Complaint: INFECTED INCISION Time Seen by MD: 12:00 Primary Medical Doctor: JT CHILDS This is a very pleasant 33-year-old female status post appendectomy by Dr. Whiteside six weeks ago, comes in for evaluation of nonhealing supraumbilical incision from a laparoscopic port. She has been on multiple rounds of antibiotics. The incision does not seem to be healing. It improves gradually, but then returns. She states that yesterday it began draining purulent discharge again. No wound care. No particular palliating or aggravating factors. This never happened in the past. Denies any other symptoms. No concern for tobacco, alcohol or illicit substances use Tetanus within 5 years?: Yes Medication Reconciliation Allergies: Coded Allergies: Latex, Natural Rubber (Verified Allergy, Intermediate, RED AND IRRITATED SKIN, 09/19/24) hydromorphone (Verified Allergy, Intermediate, rash, itching, 09/19/24) TOLERATE NORCO 08/2024 sulfamethoxazole (Verified Allergy, Intermediate, HIVES, 09/19/24) trimethoprim (Verified Allergy, Intermediate, HIVES, 09/19/24) dexmethylphenidate (Verified Allergy, Unknown, 10/20/24) morphine (Verified Allergy, Unknown, 09/19/24) TOLERATE NORCO 08/2024 aspirin (Verified Adverse Reaction, Mild, VOMITING, 09/19/24) Scheduled Bupropion Hcl (Wellbutrin Xl), 1 TAB PO DAILY, (Reported) Cephalexin*Monohydrate* (Keflex*), 1 CAP PO QID Dexmethylphenidate HCl (Dexmethylphenidate HCl ER), 1 CAP PO DAILY, (Reported) Epinephrine (Epipen 2-Sonny), 1 SYR IM ONCE Ibuprofen (Ibuprofen), 1 TAB PO Q8H Paroxetine HCl (Paroxetine HCl), 1 TAB PO HS, (Reported) Past Medical History Past Medical History: Migraine, Asthma, Bronchitis, Pneumonia, Sleep Apnea, *GI/HEPATOBILIARY*, Cholelithiasis, UTI, Anxiety, Depression Past Surgical History: cholecystectomy, other Other Past Surgical History: [place] teeth removal Alcohol Use: None Drug Use: none Lives In: Home Occupation: employed Review of Systems ROS 10 point review of systems was performed and unless noted above in HPI is negative for acute process/complaint. Physical Exam Vital Signs: Temperature: 98.3, Source: Temporal, Heart Rate: 85, Respiratory Rate: 15, BP: 140/86, Pulse Oximetry: 97, Weight: 80.700 Physical Exam Physical examination: GENERAL: Awake, alert, oriented, GCS 15, no apparent distress, non-toxic appearing, answers questions, follows commands appropriately. HEENT: Atraumatic, normocephalic, pupils equal, extraocular muscles intact Active gross movements, sclerae anicteric, mucus membranes moist, no stridor. NECK: Midline, no JVD CARDIOVASCULAR: Good skin perfusion without evidence of pallor, mottling. PULMONARY: Nonlabored, symmetric chest rise, no audible wheezing, no accessory muscle use, no respiratory distress, speaking in full sentences. GASTROINTESTINAL: Not distended. NEUROLOGIC: Lucid with normal mental status. Normal facial symmetry. Moves all extremities symmetrically and with purpose. No truncal ataxia. Speech is fluid without evidence of dysarthria or aphasia, no focal deficits appreciated. EXTREMITIES: Acute deformities Skin: warm, dry PSYCHIATRIC: Normal affect, normal insight, normal concentration. Focused exam: [There is approximately 5 cm healing incision above her umbilicus with a surrounding erythema, green purulent discharge. Tender to palpation reproducing chief complaint. Calor noted.] Progress Results/Orders Results/Orders Orders - RICO QUIROGA DO Monitor (10/20/24 12:01) Saline Lock (10/20/24 12:01) Ct Abdomen Pelvis (10/20/24 14:10) Cult (Aer) Routine C&S+Gram St (10/20/24 12:01) Completed Orders - RICO QUIROGA DO Cbc/Diff (10/20/24 12:01) ESR (10/20/24 12:01) C-Reactive Protein (10/20/24 12:01) MG (10/20/24 12:01) Piperacillin/Tazo 4.5gm/100ml (Zosyn 4.5 (10/20/24 12:05) Ct Abdomen Pelvis (10/20/24 14:10) Hs Troponin I W Calculations (10/20/24 12:01) CMP (10/20/24 12:01) Hcg Serum Ql (10/20/24 12:01) Iohexol 300mg/Ml 100ml Inj. (Omnipaque-3 (10/20/24 13:28) Medications Received in ER Medications (Trade) Dose Ordered Sig/Tamara Route PRN Reason Start Time Stop Time Status Last Admin Dose Admin Piperacillin/ Tazobactam/ Dextrose 100 ml @ 100 mls/hr ONCE ONCE IV 10/20/24 12:05 10/20/24 13:04 DC 10/20/24 13:01 100 MLS/HR Vital Signs 10/20/24 10/20/24 10/20/24 10:55 13:04 13:04 Temp 98.3 98.3 Pulse 85 75 Resp 15 12 12 B/P (MAP) 140/86 129/81 (97) Pulse Ox 97 100 Laboratory Tests Test 10/20/24 12:22 White Blood Count 9.4 Red Blood Count 4.41 Hemoglobin 14.0 Hematocrit 40.7 Mean Corpuscular Volume 92.4 Mean Corpuscular Hemoglobin 31.7 H Mean Corpuscular Hemoglobin Concent 34.4 Red Cell Distribution Width 13.8 Platelet Count 360 Mean Platelet Volume 7.8 Neutrophils (%) (Auto) 61.1 Lymphocytes (%) (Auto) 29.9 Monocytes (%) (Auto) 6.3 Eosinophils (%) (Auto) 1.5 Basophils (%) (Auto) 1.2 H Neutrophils # (Auto) 5.8 Lymphocytes # (Auto) 2.8 Monocytes # (Auto) 0.6 Eosinophils # (Auto) 0.1 Basophils # (Auto) 0.1 CBC Comment Erythrocyte Sedimentation Rate 11 Sodium Level 137 Potassium Level 3.5 Chloride Level 101 Carbon Dioxide Level 25.4 Anion Gap 11 Blood Urea Nitrogen 10 Creatinine 0.71 Estimated GFR/1.73 m2 > 90 BUN/Creatinine Ratio 14.1 Glucose Level 103 Calcium Level 9.5 Magnesium Level 2.2 Total Bilirubin 0.3 Aspartate Amino Transf (AST/SGOT) 20 Alanine Aminotransferase (ALT/SGPT) 34 Alkaline Phosphatase 101 Troponin I High Sensitivity < 4 L Troponin I High Sens Percent Delta Troponin I Hi Sens Absolute Change C-Reactive Protein 0.83 H Total Protein 7.9 Albumin 3.9 Globulin 4.0 Albumin/Globulin Ratio 1.0 L Human Chorionic Gonadotropin, Qual Negative Chemistry Comments EKG/XRAY/CT/US/VASC/MRI CT : Impression [facility] [address] [facility], [facility] [id number] CAT SCAN Patient: TYRA SNYDER Medical Record: [id number] ELIZABETH HEBRON : 1990, Age: 33 Sex: Female Location: ER Patient Status: REG ER Service Date/Time: 10/20/24/ 1410 Ordering Physician: RICO QUIROGA DO Exam: CT ABDOMEN PELVIS Indication: supraumbilical infected inscision with purulent output, sub-q abscess Technique: CT axial images of the abdomen and pelvis are obtained with intravenous contrast. Coronal and sagittal reformats were obtained. Radiation Dose Information: CTDI volume is 26 mGy. Dose-length product is 1331 mGy*cm Comparison: CT CT ABDOMEN PELVIS W/ IV CONTRAST on DOS: 09/04/24 FINDINGS: Lung bases demonstrate no pleural effusion Adrenal glands, spleen and pancreas unremarkable. No enhancing hepatic lesion. Hepatic steatosis. Gallbladder absent /nonvisualized. Kidneys demonstrate no hydronephrosis. Stomach is partially distended. Small bowel loops are demonstrating fecal like contents. Moderate volume stool in the colon. Appendix is removed. Abdominal aorta normal in caliber. No retroperitoneal lymphadenopathy. Bladder distended. Intrauterine device. No free pelvic fluid. Complex appearing left ovarian lesion measuring 3.0 cm. No inguinal lymphadenopathy. Postsurgical changes of the upper anterior abdominal wall midline. There is mild skin thickening with soft tissue stranding Mild bilateral sacroiliac degenerative joint disease. Mild thoracolumbar degenerative disc disease. IMPRESSION: Complex appearing left ovarian / adnexal lesion measuring 1 cm. Recommend pelvic ultrasound to further characterize. Appendectomy. Postsurgical changes of the anterior abdominal wall with mild skin thickening and soft tissue stranding. Correlate for cellulitis and other etiologies. No loculated fluid collection present. Intrauterine device. Other findings as described. Electronically Signed by:ALEKSANDR VILLELA MD Date & Time: 10/20/24 1432 Dictated by: ALEKSANDR VILLELA MD Dictation date and time: 10/20/24 1432 Primary Care Provider: NO PRIMARY CARE PROVIDER cc: RICO QUIROGA DO ~ Medical Decision Making Findings Facility Status: ED Holds, [facility] process The plan was discussed with the patient, who demonstrates clear understanding of the plan and is in agreement with the plan unless otherwise noted in the chart. All questions have been answered, all concerns were addressed unless otherwise documented. I was available throughout their ED stay for frequent reassessment and questions. Differential Diagnoses (considered and possible or likely): [Postoperative complication, cellulitis of surgical incision, subcutaneous abscess, less likely fistula] ??Differential Diagnoses (considered and unlikely, not requiring evaluation currently): [Unlikely to represent new acute intra-abdominal process requiring surgical intervention] MDM Data Please see [facility] for the following: Independent Historians and external Records Review. Historian: [Patient] Independent Historians: ?[Record review] Medication Management: [Reviewed medication list] Social History and determinants: [Reviewed] Please see the body of the note for the following: Any independent interpretations of ECG, imaging studies. All vitals signs/haemodynamics, ordered tests were independently reviewed and interpreted by myself. Nursing triage complaint and vitals reviewed, additional nursing notes were reviewed as available and I agree unless otherwise noted or documented in contradiction in the chart Vital Signs: Independently reviewed Labs: Independently interpreted Imaging: Independently interpreted Old Medical Records: Independently reviewed, see [facility] for relevant summary and information Pulse Oximetry: [99%] interpreted as [normal on room air] by me [Customer Support Coordinator: [Regular Rate, Regular rhythm, no ectopy, NSR] reviewed and interpreted by me] Additionally notably showing: [Hemodynamically stable. Benign laboratory workup. CT shows no abscess. Incidental finding of left ovarian cyst, complex, we will need pelvic ultrasound follow-up and gyne consultation. Tests considered but not ordered include: [Ultrasound has been considerably does not appear to be necessary only emergent basis] Social Determinants of Health Impact: Patient was evaluated in [facility], [facility] [place] to healthcare due to below par ratio of patient to medical providers. [] Comorbid Conditions Impacting Present Evaluation and Care/Treatment: [Recent surgery] Management Discussions with other Healthcare Providers: [None] Treatment and Disposition Medication Management (Given or considered): [Antibiotics]. See EMR for details Consideration for Hospitalization/Escalation/Deescalation of Care: Admission for observation has been considered, [however the patient is able to tolerate p.o., their symptoms are controlled, they are able to rely on oral medications, and their chief complaint/diagnosis can be managed on outpatient basis.] ?ED Course:?[Not septic, appropriate for outpatient follow-up.] No evidence of abscess requiring I&D. ?Shared decision making:?[Patient is hemodynamically stable for discharge home with follow with their primary care provider. [ ] Specific and cautious return precautions provided and discussed with full understanding. Any incidental findings were also discussed and follow up recommendations given. [] All questions answered. Patient/family were able to verbalize back return precautions. Patient/family agree to plan. Copies of imaging and laboratory studies were provided.] Code status:?FULL Please see the full Electronic Medical Record for full details of nursing documentation, medications list, other records of complete past medical history and conditions, vital signs, laboratory studies, and any radiologic study interpretations by radiologists. Portions of this note were completed using [employer] dictation software and as a result there may exist minor errors in spelling. I have reviewed elements of past family and social history and agree as included in note. Departure Disposition: HOME / SELF CARE / HOMELESS Impression: Primary Impression: Abdominal wall cellulitis Additional Impression: Ovarian cyst Condition: Improved Referrals: NO PRIMARY CARE PROVIDER (PCP) Prescriptions Amox Tr/Potassium Clavulanate 875/125 MG (Augmentin 875/125 MG) 875 Mg-125 Mg Tablet 1 TAB PO Q12H for 10 Days, #20 TAB Prov: RICO QUIROGA DO 10/20/24 Clindamycin HCl (Clindamycin HCl) 150 Mg Capsule 3 CAP PO Q8H for 10 Days, #90 CAP Prov: RICO QUIROGA DO 10/20/24 Education Educated: Patient Educated regarding: diagnosis, treatment, prognosis, need for follow up Signature Scribe Signature: No scribe Attestation: This note accurately reflects clinical decisions, work performed by myself, DO JUNAID Rabago NICHOLAS M DO Oct 20, 2024 12:16
[2024-10-20 12:37] LABS: BASOPHILS # (AUTO) 0.1 X10'3 (0-0.2); BASOPHILS % (AUTO) 1.2 % (0-1); EOSINOPHILS # (AUTO) 0.1 X10'3 (0-0.9); EOSINOPHILS % (AUTO) 1.5 % (0-6); HEMATOCRIT 40.7 % (35.0-45.0); LYMPHOCYTES # (AUTO) 2.8 X10'3 (1.1-4.8); LYMPHOCYTES % (AUTO) 29.9 % (21-51); MEAN CORPUSCULAR HEMOGLOBIN 31.7 PG (27.0-31.0); MEAN CORPUSCULAR HGB CONC 34.4 g/dL (33.0-36.5); MEAN CORPUSCULAR VOLUME 92.4 FL (78-98); MEAN PLATELET VOLUME 7.8 FL (7.4-10.4); MONOCYTES # (AUTO) 0.6 X10'3 (0-0.9); MONOCYTES % (AUTO) 6.3 % (2-12); NEUTROPHILS # (AUTO) 5.8 X10'3 (1.8-7.7); NEUTROPHILS % (AUTO) 61.1 % (42-75); PLATELET COUNT 360 X10'3 (140-440); RED BLOOD COUNT 4.41 X10'6 (4.20-5.60); RED CELL DISTRIBUTION WIDTH 13.8 % (11.5-14.5); WHITE BLOOD COUNT 9.4 X10'3 (4.5-11.0)
[2024-10-20 12:51] LABS: ALANINE AMINOTRANSFERASE 34 U/L (12-78); ALBUMIN 3.9 G/DL (3.4-5.0); ALKALINE PHOSPHATASE 101 IU/L (46-116); ANION GAP 11 (8-16); ASPARTATE AMINO TRANSFERASE 20 U/L (10-37); BILIRUBIN,TOTAL 0.3 MG/DL (0.1-1.0); BLOOD UREA NITROGEN 10 MG/DL (7-18); BUN/CREATININE RATIO 14.1 (10.0-20.0); C-REACTIVE PROTEIN 0.83 MG/DL (0.0-0.5); CALCIUM 9.5 MG/DL (8.5-10.1); CHLORIDE 101 MMOL/L (99-107); CREATININE 0.71 MG/DL (0.40-0.90); GLUCOSE 103 MG/DL (70-104); MAGNESIUM 2.2 MG/DL (1.5-2.4); POTASSIUM 3.5 MMOL/L (3.5-5.1); SODIUM 137 MMOL/L (135-145); TOTAL CARBON DIOXIDE 25.4 MMOL/L (24-32); TOTAL PROTEIN 7.9 G/DL (6.4-8.2); eCRCL 81 ML/MIN; eGFR > 90 ML/MIN
[2024-10-20] MEDS: piperacillin/tazo 4.5gm/100ml 100 ML IV ONE (13:01)
[2024-10-20 13:15] LABS: HCG SERUM QL NEGATIVE
[2024-10-20] MEDS ORDERED: iohexol 300mg/ml 100ml inj. ONE (13:28)
--- NOTE | 2024-10-20 14:34 | RADIOLOGY REPORT ---
Indication: supraumbilical infected inscision with purulent output, sub-q abscess Technique: CT axial images of the abdomen and pelvis are obtained with intravenous contrast. Coronal and sagittal reformats were obtained. Radiation Dose Information: CTDI volume is 26 mGy. Dose-length product is 1331 mGy*cm Comparison: CT CT ABDOMEN PELVIS W/ IV CONTRAST on DOS: 09/04/24 FINDINGS: Lung bases demonstrate no pleural effusion Adrenal glands, spleen and pancreas unremarkable. No enhancing hepatic lesion. Hepatic steatosis. Gal lbladder absent /nonvisualized. Kidneys demonstrate no hydronephrosis. Stomach is partially distended. Small bowel loops are demonstrating fecal like contents. Moderate volume stool in the colon. Appendix is removed. Abdominal aorta normal in caliber. No retroperitoneal lymphadenopathy. Bladder distended. Intrauteri ne device. No free pelvic fluid. Complex appearing left ovarian lesion measuring 3.0 cm. No inguinal lymphadenopathy. Postsurgical changes of the upper anterior abdominal wall midline. There is mild skin thickening with soft tissue stranding Mild bilateral sacroiliac degenerative joint disease. Mild thoracolumbar degenerative disc disease. IMPRESSION: Complex appearing left ovarian / adnexal lesion measuring 1 cm. Recommend pelvic ultrasound to [facility] characterize. Appendectomy. Postsurgical changes of the anterior abdominal wall with mild skin thickening and soft tissue stranding. Correlate for cellulitis and other etiologies. No loculated fluid collection prese nt. Intrauterine device. Other findings as described.
[2024-10-20] MEDS ORDERED: CLIN-15 PO (16:19)
[2024-10-20] MEDS ORDERED: AMOX-580 PO (16:19)
[2024-10-20 16:26] VITALS: BP 130/88; PULSE 74; RESP 12; TEMP 98; O2SAT 97
== END 2024-10-20 16:35 | disposition home or self-care (01) ==
LOC: ER 10:48
DX: N83.202 Unspecified ovarian cyst, left side (principal); L03.311 Cellulitis of abdominal wall; G43.909 Migraine, unspecified, not intractable, without status migrainosus; F41.9 Anxiety disorder, unspecified; J45.909 Unspecified asthma, uncomplicated; G47.30 Sleep apnea, unspecified; Z88.5 Allergy status to narcotic agent; Z88.2 Allergy status to sulfonamides; Z90.49 Acquired absence of other specified parts of digestive tract; Z91.040 Latex allergy status; Z88.8 Allergy status to other drugs, medicaments and biological substances; Z79.82 Long term (current) use of aspirin; Z79.899 Other long term (current) drug therapy
CPT/HCPCS: 36415; 74177; 80053; 83735; 84484; 84703; 85025; 85651; 86140; 87070; 87077; 87186; 96365; 99285; A6222; J2543; Q9967

== ENCOUNTER 2024-11-28 10:36 | Outpatient (CLI) | payer BC ==
[2024-11-28 11:00] LABS: MEAN PLATELET VOLUME 7.5 FL (7.4-10.4); RED CELL DISTRIBUTION WIDTH 13.2 % (11.5-14.5)
[2024-11-28 11:23] LABS: CHOL/HDL RATIO 4.4 (0.00-4.99); CREATININE 0.71 MG/DL (0.40-0.90); LDL CHOLESTEROL 117 MG/DL (50-100); TOTAL CARBON DIOXIDE 28.2 MMOL/L (24-32); eGFR > 90 ML/MIN
== END 2024-11-28 23:59 | disposition home or self-care (01) ==
LOC: RAD 10:36
PROVIDERS: ATTEND Nurse Practitioner Family
DX: E11.9 Type 2 diabetes mellitus without complications (principal); E28.2 Polycystic ovarian syndrome; D50.9 Iron deficiency anemia, unspecified; E78.5 Hyperlipidemia, unspecified; E03.9 Hypothyroidism, unspecified
CPT/HCPCS: 36415; 80053; 80061; 83036; 84443; 85025